=== PATIENT | female | born 1975 | race Caucasian/White ===

== ENCOUNTER 2018-06-08 13:42 | Emergency (ER) | payer SELFPAY ==
[2018-06-08 13:44] VITALS: BP 105/71; PULSE 94; RESP 16; TEMP 36.6; O2SAT 97; BMI 16.9
--- NOTE | 2018-06-08 14:08 | CT_ITS ---
STUDY: CT BRAIN WITHOUT CONTRAST REASON FOR EXAM: Female, 43 years old. Hallucinations RADIATION DOSAGE (If Supplied By Facility): CTDIvol = ( 44.99 ) mGy, DLP = ( 748.30 ) mGycm TECHNIQUE: Transaxial CT imaging of the brain was performed without administration of intravenous contrast material. Individualized dose optimization techniques were used for this CT. COMPARISON: None. FINDINGS: There is no acute bleed or infarct. There are normal white matter tracts. The ventricles are normal in configuration. There is no hydrocephalus. The visualized paranasal sinuses are clear. There are postsurgical changes noted in the maxillary sinuses. The mastoid air cells are well aerated. There is no skull fracture. CT/Brain/Head without Contrast IMPRESSION: No acute intracranial abnormality. Electronically Signed: Gadiel Samuel, at 15:31 EDT Tel , Service support ,
[2018-06-08 14:30] LABS: Absolute Lymphocyte Count 1.89 X10^3/ul (0.83-4.51); Absolute Neutrophil Count 3.3 X10^3/uL (2.0-7.7); Basophil# 0.01 X10^3/uL; Basophil% 0.2 % (0-1); Eosinophils% 1.7 % (0-5); Hematocrit 45.1 % (37-47); Lymphocyte # 1.89 X10^3/ul (4.0); Lymphocyte % 32.8 % (19-41); Mean Corp Hgb Conc 33.3 g/gl (32-36); Mean Corpuscular Hgb 29.8 pg (27.0-32.0); Mean Corpuscular Volume 89.7 fL (81-99); Mean Platelet Vol. 9.1 fl (6.2-12.0); Monocyte% 8.7 % (0-10); Neutrophil # 3.25 X10^3/uL (2.7-7.7); Neutrophil % 56.4 % (47-70); Platelet Count 283 K/mm3 (150-450); RBC Distribution Width CV 12.9 % (11.6-14.6); Red Blood Count 5.03 M/mm3 (4.2-5.4); White Blood Count 5.8 K/mm3 (4.4-11.0)
[2018-06-08 14:32] LABS: POSITIVE COUNT NO; POSITIVE DIFFERENTIAL NO; POSITIVE MORPHOLOGY NO
--- NOTE | 2018-06-08 14:41 | ED.RN ---
PT NOTES THAT SHE IS NOT ABLE TO VOID AT THIS TIME
[2018-06-08 14:50] LABS: Alcohol, Blood (Medical)-Serum < 3.0 mg/dL
[2018-06-08 14:53] LABS: Anion Gap 7 (5-15); BUN 9 mg/dL (7-18); BUN/Creat Ratio 12.8 RATIO (10-20); Chloride 107 mmol/L (98-107); EST Glomerular Filtration Rate 97 mL/min (>60); Est Glom Filt Rate - Afr Amer 117 mL/min (>60); Estimated Creatinine Clearance 76.19 ml/min; Glucose 96 mg/dL (74-106); Potassium 3.7 mmol/L (3.5-5.1); Sodium Level 140 mmol/L (136-145); Thyroid Stim Hormone (TSH) 0.38 uIU/mL (0.358-3.74)
[2018-06-08 14:59] LABS: Pregnancy, Serum, hCG Quali. NEGATIVE Negative (0-9 Nonpreg)
[2018-06-08 16:07] LABS: Amphetamine Urine VISTA POSITIVE (<1000 ng/mL); Barbiturate Urine VISTA NEGATIVE (< 200 ng/mL); Benzodiazepine Urine VISTA NEGATIVE (< 200 ng/mL); Cocaine Urine VISTA NEGATIVE (< 300 ng/mL); Ecstacy Urine VISTA NEGATIVE (< 500 ng/mL); Methadone Urine VISTA NEGATIVE (< 300 ng/mL); PCP Urine VISTA NEGATIVE (< 25 ng/mL); THC Urine VISTA NEGATIVE (< 50 ng/mL); Vista UDS pH Range 6
[2018-06-08 16:13] VITALS: PULSE 75; RESP 14; O2SAT 98
--- NOTE | 2018-06-08 16:24 | NURSING ---
CALLED [facility]SEL[facility]
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
--- NOTE | 2018-06-08 16:49 | NURSING ---
TAVARES MARSHALL, CALLED BACK. SHE IS AT [facility].
--- NOTE | 2018-06-08 17:08 | ED.VISSUMM ---
- ER Visit Summary Date of Service: 06/08/18 Chief Complaint: Presents to the emergency room because of auditory and visual hallucinations. History of Present Illness: The patient is a 43 F with no psychiatric disorder who was brought to the ER by her mother because of auditory and visual hallucination. She has had problems with sleep, appetite with weight loss. She was in a long-term relationship of 18-19 years with boyfriend who she is no longer with. She has had other losses in the last 1-2 months. The weight loss is unintentional. She does have history of chronic back pain. She does admit to depression anxiety. There is a strong family history of bipolar affective disorder. She denies any suicidal homicidal thoughts. She has taken akqy-jtl-kkrhckp medication recently. She does admit to smoking. She presently lives with her dog. Mother states she is not eating well. And even when she visits she does not eat well. She is concerned because her daughter is been losing weight and does not look happy. Physical Examination: Patient is thin but not cachectic. Vital signs are normal. She has slow psychomotor skills with poverty of speech. She denies suicidal homicidal ideation. Head is atraumatic normocephalic. Pupils are equal round reactive. Extraocular muscles are intact. TMs are pearly white with landmarks noted. Nares patent with no drainage. Posterior pharynx without erythema or exudate. Uvula is midline. There is no dysphonia or dysphasia. Trachea is midline. There is no stridor with auscultation of the neck. Heart is regular without murmur, gallop or rub. S1 and S2 are normal. Lungs are clear to auscultation with good movement of air bilaterally. Abdomen is soft nontender. Bowel sounds are present normal. Patient is alert and oriented ?3. Motor is 5 over 5. Sensory is intact. DTRs are symmetric with no clonus or Babinski sign. Cranial 2 through 12 are intact. Cerebellar testing is normal. Test Results: CBC, BMP, alcohol, hCG and tox screen are all negative. TSH is within normal limits. CT of the head interpreted radiologist reveals no process. Emergency Department Course and Treatment: Because there is no prior history of psychiatric disorder and she is having both auditory and visual hallucinations a CT of the head was obtained to rule out any intracranial process. CBC, BMP, amphetamine, alcohol and TSH were obtained. The tox was positive for amphetamine which may secondary to the ndoj-owx-jmxoufu medication she has taken recently. Serum test was negative. Treatment Plan: Radha who is the licensed tax consultant on for the counselor was paged. She is presently at another facility. Patient has significant depression she needs urgent intervention. Since she is not doing well at home with poor social interactions recommend either acute outpatient visit with antidepressant versus hospitalization. Disposition: Pending evaluation by Radha licensed tax consultant from the counseling center Impression: 1. Depression, major 2. Unintentional weight loss secondary #1 3. Auditory and visual hallucination This note was generated with [employer] Digital Keysation software. It may contain incorrect words, spelling, and punctuation that were not noted in review of the chart prior to signing ED Disposition - Plan for ED Patient: Chief Complaint: Mental Health Referrals: Kaiser La MD [Primary Care Provider] -
--- NOTE | 2018-06-08 17:13 | ED.DCSUM_ITS ---
- ER Visit Summary Date of Service: 06/08/18 Chief Complaint: Presents to the emergency room because of auditory and visual hallucinations. History of Present Illness: The patient is a 43 F with no psychiatric disorder who was brought to the ER by her mother because of auditory and visual hallucination. She has had problems with sleep, appetite with weight loss. She was in a long-term relationship of 18-19 years with boyfriend who she is no longer with. She has had other losses in the last 1-2 months. The weight loss is unintentional. She does have history of chronic back pain. She does admit to depression anxiety. There is a strong family history of bipolar affective disorder. She denies any suicidal homicidal thoughts. She has taken over-the- counter medication recently. She does admit to smoking. She presently lives with her dog. Mother states she is not eating well. And even when she visits she does not eat well. She is concerned because her daughter is been losing weight and does not look happy. Physical Examination: Patient is thin but not cachectic. Vital signs are normal. She has slow psychomotor skills with poverty of speech. She denies suicidal homicidal ideation. Head is atraumatic normocephalic. Pupils are equal round reactive. Extraocular muscles are intact. TMs are pearly white with landmarks noted. Nares patent with no drainage. Posterior pharynx without erythema or exudate. Uvula is midline. There is no dysphonia or dysphasia. Trachea is midline. There is no stridor with auscultation of the neck. Heart is regular without murmur, gallop or rub. S1 and S2 are normal. Lungs are clear to auscultation with good movement of air bilaterally. Abdomen is soft nontender. Bowel sounds are present normal. Patient is alert and oriented ?3. Motor is 5 over 5. Sensory is intact. DTRs are symmetric with no clonus or Babinski sign. Cranial 2 through 12 are intact. Cerebellar testing is normal. Test Results: CBC, BMP, alcohol, hCG and tox screen are all negative. TSH is within normal limits. CT of the head interpreted radiologist reveals no process. Emergency Department Course and Treatment: Because there is no prior history of psychiatric disorder and she is having both auditory and visual hallucinations a CT of the head was obtained to rule out any intracranial process. CBC, BMP, amphetamine, alcohol and TSH were obtained. The tox was positive for amphetamine which may secondary to the licn-rnf-winqrmz medication she has taken recently. Serum test was negative. Treatment Plan: Radha who is the generator worker on for the counselor was paged. She is presently at another facility. Patient has significant depression she needs urgent intervention. Since she is not doing well at home with poor social interactions recommend either acute outpatient visit with antidepressant versus hospitalization. Disposition: Pending evaluation by Radha generator worker from the counseling center Impression: 1. Depression, major 2. Unintentional weight loss secondary #1 3. Auditory and visual hallucination This note was generated with ProfitB[employer]ation software. It may contain incorrect words, spelling, and punctuation that were not noted in review of the chart prior to signing ED Disposition - Plan for ED Patient: Chief Complaint: Mental Health Referrals: [facility] La MD [Primary Care Provider] -
--- NOTE | 2018-06-08 18:18 | NURSING ---
ROLANDO, CRISIS, HERE FOR PATIENT
[2018-06-08 18:30] VITALS: PULSE 82; O2SAT 98
--- NOTE | 2018-06-08 19:32 | ED.VISSUMM ---
- ER Visit Summary Date of Service: 06/08/18 Chief Complaint: [Addendum to initial dictation by Dr. Levi Zacarias] History of Present Illness: The patient is a 43 F [was turned over to me awaiting evaluation by crisis. Patient with some depression and visual and auditory hallucinations. After evaluation by crisis it was felt she could be discharged home with safety plan and close follow-up tomorrow with the counseling center. Patient has her parents here with her and they will stay with her tonight. Patient is not currently suicidal.] Physical Examination: [] Test Results: [] Emergency Department Course and Treatment: [] Treatment Plan: [] Disposition: [Discharged home in stable condition] Impression: [Depression Visual and auditory hallucinations] This note was generated with Spotivate dictation software. It may contain incorrect words, spelling, and punctuation that were not noted in review of the chart prior to signing ED Disposition - Plan for ED Patient: Chief Complaint: Mental Health Instructions: ED Depression Referrals: Kaiser La MD [Primary Care Provider] - Additional Instructions: see counseling center tomorrow
[2018-06-08 19:38] VITALS: RESP 18
== END 2018-06-08 19:38 | disposition home or self-care (01) ==
PROVIDERS: Emergency Provider Emergency Medicine; Family Provider Family Medicine; PCP Family Medicine
DX: F32.9 Major depressive disorder, single episode, unspecified (principal); R44.0 Auditory hallucinations; R44.1 Visual hallucinations; R63.4 Abnormal weight loss; Z68.1 Body mass index [BMI] 19.9 or less, adult; Z81.8 Family history of other mental and behavioral disorders
CPT/HCPCS: 36415; 70450; 80048; 80307; 80320; 84443; 84703; 85025; 99283; G0480

== ENCOUNTER 2018-07-31 14:14 | Emergency (ER) | payer SELFPAY ==
[2018-07-31 14:15] VITALS: BP 157/74; PULSE 100; RESP 18; TEMP 36.8; O2SAT 97; BMI 17.2
--- NOTE | 2018-07-31 15:01 | ED.RN ---
CALLED PT TO COME BACK TO ED ROOM AT 1442, PT AND SO NOT IN DEPT.
== END 2018-07-31 15:21 | disposition left against medical advice (07) ==
LOC: ED 15:13
PROVIDERS: Emergency Provider Emergency Medicine; Family Provider Family Medicine; PCP Family Medicine
DX: R69 Illness, unspecified (principal); Z53.21 Procedure and treatment not carried out due to patient leaving prior to being seen by health care provider

== ENCOUNTER 2023-08-26 07:39 | Emergency (ER) | payer MEDICARE, MEDICAID, SELFPAY ==
[2023-08-26 07:40] VITALS: BP 122/102; PULSE 117; RESP 16; TEMP 36.1; O2SAT 98; BMI 26.1
--- NOTE | 2023-08-26 07:49 | RAD_ITS ---
STUDY: X-RAY - LEFT ANKLE REASON FOR EXAM: Female, 48 years old. Injury. TECHNIQUE: 3 views of the left ankle. COMPARISON: None. FINDINGS: Normal visualized distal tibia and fibula. Normal medial and lateral malleoli. Normal tibiotalar articulation and ankle mortise. Intact visualized talus and calcaneus. There is a posterior calcaneal tuberosity spur at the distal insertion of the Achilles tendon. The visualized subtalar, talonavicular, calcaneocuboid and tarsal articulations are normal. There is no demonstrated fracture. The soft tissue structures are unremarkable. RAD/Ankle min 3 Views IMPRESSION: Posterior calcaneal tuberosity spur at the distal insertion of the Achilles tendon. No demonstrated fracture. Electronically Signed: Panda Valles MD at 8:32 EDT ,
--- NOTE | 2023-08-26 07:49 | RAD_ITS ---
STUDY: X-RAY - LEFT FOOT CLINICAL: Female, 48 years old. Injury. TECHNIQUE: 3 views of the left foot. COMPARISON: None. FINDINGS: Intact talus, calcaneus, and tarsal bones. There is a posterior calcaneal tuberosity spur at the distal insertion of the Achilles tendon. Normal visualized subtalar, talonavicular, calcaneocuboid, tarsal and tarsometatarsal articulations. Normal metatarsi. Normal metatarsophalangeal joint of the great toe. Normal tibial and fibular sesamoid bones. Normal interphalangeal joint of the great toe. Normal phalanges of the great toe. Normal second through fifth metatarsophalangeal joints. Normal interphalangeal joints and phalanges of the lesser toes. There is mild soft tissue swelling along the dorsum of the forefoot. There is no demonstrated fracture. RAD/Foot min 3 Views IMPRESSION: Posterior calcaneal tuberosity spur at the distal insertion of the Achilles tendon. Mild soft tissue swelling along the dorsum of the forefoot. No demonstrated fracture. Electronically Signed: Panda Valles MD at 8:34 EDT ,
--- NOTE | 2023-08-26 07:53 | EDS_ITS ---
HPI History of Present Illness Chief Complaint: Lower Extremity Injury Informant: patient Onset/Context/Timing Onset: Yesterday Context: Sudden Onset Timing: Continuous Quality of Pain: Aching Location: L foot/ankle Current Severity: Moderate Maximum Severity: Moderate Worsened by: walking Relieved by: rest Associated Symptoms Associated Symptoms: Negative for Parasthesia, Weakness or Loss of Funtion Narrative Narrative: Patient states she accidentally stepped in a hole in the yard, twisting her left ankle, she felt a pop at 1 point. She has pain in the lateral aspect of the left ankle and foot. Has been able to walk now and at the time of the incident but with significant discomfort. No other injuries. PFSH PFSH Medical History no medical history Home Medications cyclobenzaprine 10 mg tablet 10 mg PO BID 06/08/18 [History Last Taken Unknown] gabapentin 100 mg capsule (Neurontin) 100 mg PO DAILY 06/08/18 [History Last Taken Unknown] levonorgestrel 0.15 mg-ethinyl estradiol 0.03 mg tablet (Lillow (28)) 1 tab PO DAILY 06/08/18 [History Last Taken 06/08/18] oxycodone-acetaminophen 5 mg-325 mg tablet 1 tab PO Q4H PRN PRN Pain 06/08/18 [History Last Taken Unknown] Allergy/AdvReac Type Severity Reaction Status Date / Time No Known Allergies Allergy Verified 08/26/23 07:40 Social History Smoking Status: Never smoker ROS ROS ED Constitutional Constitutional ED: Denies chills or fever(s) Musculoskeletal Musculoskeletal: Reports extremity pain; Denies neck pain Integumentary Denies Abrasions, rash or wounds Neurologic Neurologic: Denies paresthesias or weakness EXAM Physical Exam Const Vital Signs: 08/26/23 07:40 Temperature 96.9 F L Temperature Source Temporal Pulse Rate 117 H Respiratory Rate 16 Blood Pressure 122/102 H Blood Pressure Mean 108 Pulse Ox 98 Oxygen Delivery Method Room Air Positive well nourished and well developed General Appearance ED: well developed and NAD Neck full ROM and supple Back/Spine normal ROM and normal to inspection Extremity Extremity Narrative: Swelling, ecchymosis, tenderness left lateral malleolus. Nontender medial malleolus and fibular head. She is tender at the base of the fifth metatarsal as well as all of the areas between this and the lateral malleolus. Joint feels stable with applying medial stress on the ankle. Mild tenderness at the distal metatarsals 4 and 5 without any signs of injury or swelling there. Toes nontender. The great toe has a bandage on it patient states she just had her nail removed surgically and it is not part of this injury. Neuro oriented x3, no focal motor deficits and no sensory deficits noted Sensorium / Orientation: alert Psych mental status grossly normal and thought process normal Skin no wounds Rashes: no rashes MDM MDM MDM Narrative Medical decision making narrative: Given the base of the fifth metatarsal and foot bones that are tender, three- view x-rays series of both the left ankle and foot were obtained, both negative on my interpretation, and radiology in agreement. Patient reassured given ibuprofen and an Aircast with appropriate sprain instructions and reasons to return. Radiography Diagnostic Testing: Clinical Impression(s) from Imaging Studies Ankle X-Ray 08/26/23 07:49 IMPRESSION: Posterior calcaneal tuberosity spur at the distal insertion of the Achilles tendon. No demonstrated fracture. Electronically Signed: Panda Valles MD at 8:32 EDT Reading Location ID and State: [id number] / [email or web address] , Service support , Foot X-Ray 08/26/23 07:49 IMPRESSION: Posterior calcaneal tuberosity spur at the distal insertion of the Achilles tendon. Mild soft tissue swelling along the dorsum of the forefoot. No demonstrated fracture. Electronically Signed: Panda Valles MD at 8:34 EDT , Discharge Plan Triage Chief Complaint: Lower Extremity Injury ED Provider: Patricio Hernadez Dx/Rx/DC Orders Clinical Impression: Sprain of ankle, left, Sprain of foot, left Instructions: ED Ankle Sprain (Adult) Prescriptions: No Action cyclobenzaprine 10 MG tablet 10 mg PO BID oxycodone-acetaminophen 1 TABLET tablet 1 tab PO Q4H PRN PRN (Reason: Pain) gabapentin [Neurontin] 100 MG capsule 100 mg PO DAILY levonorgestrel-ethinyl estrad [Angelo (28)] 1 EACH tablet 1 tab PO DAILY Patient Comments: Primary Care Provider: Care Physician,No Primary Referrals: Doctor,Your [Non-Staff] - 10-14 Days if not better Disposition Disposition: Home, Self Care
[2023-08-26] MEDS: Ibuprofen 600 MG Tablet PO (09:25)
== END 2023-08-26 09:27 | disposition home or self-care (01) ==
PROVIDERS: Emergency Provider Emergency Medicine; Visit Provider Emergency Medicine
DX: S93.402A Sprain of unspecified ligament of left ankle, initial encounter (principal); X58.XXXA Exposure to other specified factors, initial encounter
CPT/HCPCS: 73610; 73630; 99283

== ENCOUNTER 2025-10-31 16:11 | Emergency (ER) | payer MEDICARE, MEDICAID, SELFPAY ==
[2025-10-31 16:11] VITALS: BP 127/86; PULSE 100; RESP 16; TEMP 36.6; O2SAT 98; BMI 28.8
--- NOTE | 2025-10-31 16:25 | EX.ED.GENINJ ---
HPI History of Present Illness Chief Complaint: Fall Informant: patient Narrative Narrative: 50-year-old female presenting for the evaluation of injury sustained from a fall. Patient states that due to the snow and ice last night she slipped and fell while outside injuring her left elbow left knee ankle and foot. Patient chronically has sensory loss below the knee on the left but she is experiencing pain. Patient denies any loss of consciousness. She states she continues to have pain today and notes some swelling of the lateral ankle. She notes continued pain with extension at the left elbow. PFSH PFSH Home Medications ?Medication ?Instructions ?Recorded ?Last Taken ?Type cyclobenzaprine 10 mg tablet 10 mg PO BID 06/08/18 Unknown History gabapentin 100 mg capsule 100 mg PO DAILY 06/08/18 Unknown History (Neurontin) levonorgestrel 0.15 mg-ethinyl 1 tab PO DAILY 06/08/18 06/08/18 History estradiol 0.03 mg tablet (Lillow (28)) oxycodone-acetaminophen 5 mg-325 1 tab PO Q4H PRN PRN Pain 06/08/18 Unknown History mg tablet atorvastatin 40 mg tablet 40 mg PO DAILY 10/31/25 Unknown History buspirone 10 mg tablet 10 mg PO BID PRN PRN anxiety 10/31/25 Unknown History clobetasol 0.05 % topical ointment 1 applic topical BID 10/31/25 Unknown History estradiol 10 mcg vaginal tablet 1 vaginal 10/31/25 Unknown History (Yuvafem) norethindrone 1.5 mg-ethinyl 1 tab PO DAILY 10/31/25 Unknown History estradiol 30 mcg(21)/iron 75 mg(7) tablet (Aditi Fe 1.5/30 (28)) oxycodone-acetaminophen 5 mg-325 1 tab PO Q6H PRN pain 3 days #12 10/31/25 Unknown Rx mg tablet (Percocet) tabs vortioxetine 20 mg tablet 20 mg PO DAILY 10/31/25 Unknown History (Trintellix) Allergy/AdvReac Type Severity Reaction Status Date / Time No Known Allergies Allergy Verified 10/31/25 16:13 Social History Smoking Status: Never smoker ROS ROS ED Constitutional Constitutional ED: Denies chills or weight loss Eyes Eyes: Denies change in vision or diplopia ENT ENT ED: Denies ear pain, rhinorrhea or sore throat Cardiovascular Cardiovascular: Denies chest pain, orthopnea, palpitations or racing heartbeat Respiratory/Chest Respiratory/Chest: Denies cough, dyspnea or orthopnea Gastrointestinal Gastrointestinal: Denies abdominal pain, diarrhea, nausea or vomiting Genitourinary Genitourinary ED: Denies dysuria, hematuria or urinary frequency Musculoskeletal Musculoskeletal: Reports other Details: Left elbow knee foot and ankle pain ; Denies arthralgias, back pain, myalgias or neck pain Integumentary Denies abscess or rash Neurologic Neurologic: Denies headache(s) or weakness Psychiatric Psychiatric: Denies anxiety, depression, suicidal ideation or suicidal thoughts Endocrine Endocrinology: Denies polydipsia, polyphagia or polyuria Allergic/Immunologic Allergic/Immunologic ED: Denies mouth swelling, tongue swelling or urticaria EXAM Physical Exam Const Vital Signs: 10/31/25 16:11 10/31/25 16:23 Temperature 98 F Temperature Source Temporal Pulse Rate 100 Respiratory Rate 16 Respiratory Effort Normal Non-Labored Respiratory Depth Normal Respiratory Pattern Normal Blood Pressure 127/86 H Blood Pressure Mean 99 Pulse Ox 98 Oxygen Delivery Method Room Air Positive well nourished and well developed General Appearance ED: well developed HEENT Reports normocephalic, head/scalp atraumatic and moist mucous membranes Eyes PERRL and EOMs intact bilaterally Neck no lymphadenopathy, supple and no JVD Resp normal respiratory effort and clear to auscultation bilaterally Cardio regular rate, regular rhythm and no murmurs GI normal to inspection, nondistended, normoactive bowel sounds and non-tender Palpation: soft Back/Spine no CVA tenderness and normal ROM Extremity Extremity Narrative: Left elbow demonstrates pain with palpation of the olecranon and with full extension. No significant swelling or ecchymosis is seen. Left wrist and hand appear uninjured. Left knee demonstrates prior surgical incisions which are well-healed. There appears to be an area of ecchymosis in the infrapatellar region. No significant effusion. Ligaments are stable. Left ankle demonstrates lateral malleolus swelling and tenderness. The swelling extends down onto the dorsal lateral aspect of the left foot. No significant deformities are seen. General Extremety ED: Negative for edema General Extremity: Negative for edema Neuro oriented x3 and CN's II-XII intact bilaterally Sensorium / Orientation: alert Motor Exam: strength 5/5 throughout Psych mental status grossly normal Mood & Affect: Negative for depressed or tearful Skin no rashes or lesions noted and no wounds MDM MDM MDM Narrative Medical decision making narrative: Differential diagnosis includes left foot ankle knee and elbow fracture contusion sprain strain hematoma neurovascular injury Based on the physical exam patient appears to be neurovascularly intact/at her baseline. My independent interpretation of the plain film the left elbow is avulsion fracture of possibly the radial head versus coronoid process. There is hemarthrosis. My independent interpretation of the plain films of the left knee is no acute fracture My independent interpretation of the plain films of the left ankle is no acute fracture My independent interpretation of the plain films of the left foot is no acute fracture. Patient was placed in a well-padded posterior Ortho-Glass splint made by this physician. Neurovascularly intact pre and post application. She will utilize sling as needed. Percocet for pain. The left ankle sprain the patient states has a air splint at home. We will place an Avila wrap here. She has no local orthopedic surgeon and I can refer her to Dr. Hayes who is on-call. History & Record Review Discussion w/independent historian: Patient Radiography Diagnostic Testing: Clinical Impression(s) from Imaging Studies Ankle X-Ray 10/31/25 16:33 IMPRESSION: Mild lateral soft tissue swelling left ankle. Degenerative changes of the foot and ankle. Negative for fracture of the left foot or ankle. Reading Location: [facility] Elbow X-Ray 10/31/25 16:33 IMPRESSION: Hemarthrosis with bony fragments adjacent to the elbow, likely avulsion fractures. Uncertain etiology. CT of the left elbow to better evaluate likely helpful. Reading Location: [id number] Foot X-Ray 10/31/25 16:33 IMPRESSION: Mild lateral soft tissue swelling left ankle. Degenerative changes of the foot and ankle. Negative for fracture of the left foot or ankle. Reading Location: [id number] Knee X-Ray 10/31/25 16:33 IMPRESSION: 1. Postoperative changes about the knee. No malalignment. 2. Osteoarthritis. Sequelae of old ligamentous injury of the medial collateral ligament structures. Soft tissue swelling medially. Reading Location: [id number] Discharge Plan Triage Chief Complaint: Fall ED Provider: Jose Brennan Dx/Rx/DC Orders Clinical Impression: Fall, Closed fracture of left elbow, Contusion of knee, left, Left ankle sprain Instructions: ED Elbow Fracture, ED Ankle Sprain (Adult) Prescriptions: New oxycodone-acetaminophen [Percocet] 5-325 mg tablet 1 tab PO Q6H PRN (Reason: pain) 3 Days Qty: 12 0RF No Action cyclobenzaprine 10 MG tablet 10 mg PO BID oxycodone-acetaminophen 1 TABLET tablet 1 tab PO Q4H PRN PRN (Reason: Pain) gabapentin [Neurontin] 100 MG capsule 100 mg PO DAILY levonorgestrel-ethinyl estrad [Lillow (28)] 1 EACH tablet 1 tab PO DAILY Patient Comments: atorvastatin 40 mg tablet 40 mg PO DAILY norethindrone-e.estradiol-iron [Aditi Fe 1.5/30 (28)] 1.5 mg-30 mcg (21)/75 mg (7) tablet 1 tab PO DAILY buspirone 10 mg tablet 10 mg PO BID PRN PRN (Reason: anxiety) clobetasol 0.05 % ointment 1 applic topical BID estradiol [Yuvafem] 10 mcg tablet 1 vaginal Trintellix 20 mg tablet 20 mg PO DAILY Primary Care Provider: JEREMY CM Referrals: Gadiel Rodriguez MD [Med Staff - Active Staff, Orthopedics] - As soon as possible Referral Note: for local orthopedics Care Physician,No Primary [Non-Staff, Medical] Print Language: Croatian Disposition Disposition: Home, Self Care
--- NOTE | 2025-10-31 16:33 | RAD_ITS ---
PROCEDURE: ELBOW MIN 3 VIEWS 10/31/2025 REASON FOR EXAM: INJURY TECHNIQUE: Procedure Code: CYRUS Modality: DX Procedure: ELBOW MIN 3 VIEWS Laterality: Left COMPARISON: None. FINDINGS: Bones: Presumed avulsion fractures noted adjacent to the radial head best seen on the lateral view. Distal humerus negative. Proximal radius and ulna negative. Joints: Anterior and posterior fat pad displacement. Soft tissues: Soft tissues soft tissues negative. Other: Remainder of the exam negative. RAD/Elbow min 3 Views IMPRESSION: Hemarthrosis with bony fragments adjacent to the elbow, likely avulsion fractur es. Uncertain etiology. CT of the left elbow to better evaluate likely helpful. Reading Location: [id number]
--- NOTE | 2025-10-31 16:33 | RAD_ITS ---
PROCEDURE: ANKLE MIN 3 VIEWS; FOOT MIN 3 VIEWS 10/31/2025 REASON FOR EXAM: INJURY Ankle pain. TECHNIQUE: Procedure Code: RADANK; RADFO Modality: DX Procedure: ANKLE MIN 3 VIEWS; FOOT MIN 3 VIEWS Laterality: Left COMPARISON: None FINDINGS: Three views of the left ankle. Bones: Distal tibia and fibula negative. Imaged hindfoot and metatarsals negative. Joints: Normal for age. Soft tissues: Mild lateral soft tissue swelling. Other: Remainder of the exam negative. Three views of the left foot. Bones: Osteopenia. Degenerative changes of the 1st interphalangeal joint. Distal tibia and fibula otherwise negative. Tarsals metatarsals and phalanges otherwise negative. Joints: Negative for joint space narrowing. Soft tissues: . Negative for radiopaque foreign body. Negative for soft tissue swelling. Other: Adjacent soft tissues otherwise negative. Remainder of exam negative. RAD/Foot min 3 Views IMPRESSION: Mild lateral soft tissue swelling left ankle. Degenerative changes of the foot and ankle. Negative for fracture of the left foot or ankle. Reading Location: [id number]
--- NOTE | 2025-10-31 16:33 | RAD_ITS ---
PROCEDURE: KNEE 4 OR MORE VIEWS 10/31/2025 REASON FOR EXAM: INJURY TECHNIQUE: Procedure Code: RADKN Modality: DX Procedure: KNEE 4 OR MORE VIEWS Laterality: Left COMPARISON: None FINDINGS: Bones: Buttress plates and screws are shown involving the distal femur. Additional screws are seen in the medial and lateral malleoli. 2 screws are seen at the tibial tuberosity. Joints: Tricompartment osteoarthritic change. Spurring of the tibial spines. Some calcification also is shown at the medial epicondyle and proximal tibia that is the sequelae of prior ligamentous injury of the medial collateral ligaments. Effusion: No effusion. 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 Postoperative changes about the knee. No malalignment. 2. Osteoarthritis. Sequelae of old ligamentous injury of the medial collatera l ligament structures. Soft tissue swelling medially. Reading Location: [id number]
--- NOTE | 2025-10-31 16:33 | RAD_ITS ---
PROCEDURE: ANKLE MIN 3 VIEWS; FOOT MIN 3 VIEWS 10/31/2025 REASON FOR EXAM: INJURY Ankle pain. TECHNIQUE: Procedure Code: RADANK; RADFO Modality: DX Procedure: ANKLE MIN 3 VIEWS; FOOT MIN 3 VIEWS Laterality: Left COMPARISON: None FINDINGS: Three views of the left ankle. Bones: Distal tibia and fibula negative. Imaged hindfoot and metatarsals negative. Joints: Normal for age. Soft tissues: Mild lateral soft tissue swelling. Other: Remainder of the exam negative. Three views of the left foot. Bones: Osteopenia. Degenerative changes of the 1st interphalangeal joint. Distal tibia and fibula otherwise negative. Tarsals metatarsals and phalanges otherwise negative. Joints: Negative for joint space narrowing. Soft tissues: . Negative for radiopaque foreign body. Negative for soft tissue swelling. Other: Adjacent soft tissues otherwise negative. Remainder of exam negative. RAD/Ankle min 3 Views IMPRESSION: Mild lateral soft tissue swelling left ankle. Degenerative changes of the foot and ankle. Negative for fracture of the left foot or ankle. Reading Location: [id number]
--- OUTSIDE RECORDS SUMMARY | 2025-10-31 16:48 | XMS RPT_ITS | CCD ---
Author Organization [facility] Care Team Providers Care Passenger Representative Name Role Phone ZacariasZacariaso Unavailable HANS Herrera Unavailable PROVIDER, UNKNOWN Referring Unavailable No, PCP Primary Care Unavailable Wilmer Solo Attending Unavailable KENY BANG, HANS Bergeron Primary Care Physician YUSUF BANG, ZEESHAN Caal Attending Unavail able KENY BANG, HANS Bergeron Primary Care Unavailable FAIZAN BANG, JOSE F Attending Unavailable KENY BANG, HANS Bergeron Primary Care Unavailable KENY BANG, HANS Bergeron Primary Care Unavailable JEREMY ASHER Attending Yoko espinoza Medications Current Medications Medication Drug Class(es) Dates Sig (Normalized) Sig (Original) 3.5 ML paliperidone palmitate 312 MG/ML Prefilled Syringe [Invega] (3 sources) Start: 05-16-2023 Invega Hafyera 1092 mg/3.5 mL intramuscular suspension, extended release Dose : 1,092 mg =, Intramuscular, q6mo, shake well before using, # 3.5 mL, 0 Refill(s) Start Date: 05/16/23 Status: Ordered Medication Dispense Status: Completed Quantity: 3.5 Unit: mL Total Allowed Fills: 1 Fills Dispensed: 0 Start: 05-16-2023 Invega Hafyera 1092 mg/3.5 mL intramuscular suspension, extended release Dose : 1,092 mg =, Intramuscular, q6mo, shake well before using, # 3.5 mL, 0 Refill(s) Start Date: 05/16/23 Status: Ordered clobetasol propionate 0.0005 mg/mg topical ointment (3 sources) Corticosteroid Start: 04-21-2025 clobetasol 0.0 5% topical ointment See Instructions, APPLY TO AFFECTED AREA ONCE PER WEEK, MAY INCREASE TO TWICE A DAY FOR 7 DAYS FOR ANY LICHEN RECURRENCES, # 60 gram(s), 3 Refill(s), Pharmacy: [facility] STORE [id number], 165.2, cm, 12/28/24 14:30:00 EST, Height, 74.1, kg, 12/28/24 14:30:00 EST, Dosing Weight Start Date: 04/21/25 Status: Ordered Medication Dispense Status: Completed Quantity: 60.0 Unit: g Total Allowed Fills: 1 Fills Dispensed: 0 Start: 10-08-2023 End: 01-28-2024 clobetasol 0.05% topical oin tment Apply 1 robert, Topical, BID, # 60 gram(s), 3 Refill(s), Pharmacy: [facility] #[id number], Ointment, 165.2, cm, 10/08/23 14:57:00 EST, Height, 70.5, kg, 10/08/23 14:57:00 EST, Dosing Weight Start Date: 10/08/23 Stop Date: 01/28/24 Status: Ordered cyclobenzaprine hydrochloride 10 mg oral tablet (2 sources) Muscle Relaxant Start: 06-30-2025 End: 07-30-2025 cyclobenzaprine 10 mg oral tablet Dose : 10 mg = 1 tab(s), Oral, BID, PRN for spasm, # 60 tab(s), 0 Refill(s), Pharmacy: [facility]/pharmacy #[id number], Chronic low back pain, 163, cm, 06/23/25 15:26:00 EDT, Height, kg, 06/23/25 15:26:00 EDT, Dosing Weight Start Date: 06/30/25 Stop Date: 07/30/25 Status: Ordered Medication Dispense Status: Completed Quantity: 60.0 Unit: tab(s) Total Allowed Fills: 1 Fills Dispensed: 0 Indications: Low back pain, unspecified; Start: 04-27-2022 cyclobenzaprin e 10 mg oral tablet Dose : 10 mg = 1 tab(s), Oral, BID, # 90 tab(s), 2 Refill(s), Pharmacy: [facility] 167, cm, 04/27/22 14:29:00 EDT, Height, kg, 04/27/22 14:29:00 EDT, Dosing Weight Start Date: 04/27/22 Status: Ordered estradiol 0.01 mg vaginal insert (3 sources) Estrogen Start: 12-28-2024 Vagifem 10 mcg vaginal insert Dose : 10 mcg = 1 insert, Vaginal, 2x/Wk, # 8 insert, 11 Refill(s), Pharmacy: [facility]/pharmacy #[id number], 165.2, cm, 12/28/24 14:30:00 EST, Height, kg, 12/28/24 14:30:00 EST, Dosing Weight Start Date: 12/28/24 Status: Ordered Medication Dispense Status: Completed Quantity: 8.0 Unit: insert Total Allowed Fills: 12 Fills Dispensed: 0 Start: 05-16-2023 End: 07-18-2023 Estrace Vaginal 0.1 mg/g vag inal cream 1 gram(s), Vaginal, qDay, # 42.5 gram(s), 2 Refill(s), Pharmacy: [facility] #[id number], 165, cm, 05/16/23 10:57:00 EDT, Height Start Date: 05/16/23 Stop Date: 07/18/23 Status: Ordered ethinyl estradiol 0.03 mg / ferrous fumarate 75 mg / norethindrone 1.5 mg oral tablet (6 sources) Estrogen Start: 03-25-2025 take 1 tablet by mouth once daily oral tablet See Instructions, TAKE 1 TABLET BY MOUTH EVERY DAY, # 84 tab(s), 2 Refill(s), Pharmacy: [facility]/pharmacy #[id number], 165.2, cm, 12/28/24 14:30:00 EST, Height, kg, 12/28/24 14:30:00 EST, Dosing Weight Start Date: 03/25/25 Status: Ordered Medication Dispense Status: Completed Quantity: 84.0 Unit: tab(s) Total Allowed Fills: 3 Fills Dispensed: 0 Start: 09-30-2023 take 1 tablet by vangie th once daily oral tablet Dose = 1 tab(s), Oral, qDay, # 90 tab(s), 3 Refill(s), Pharmacy: [facility] #[id number], 165.2, cm, 10/08/23 14:57:00 EST, Height, kg, 10/08/23 14:57:00 EST, Dosing Weight Start Date: 10/08/23 Status: Ordered Start: 09-17-2022 take 1 tablet by once daily oral tablet Dose = 1 tab(s), Oral, qDay, # 28 tab(s), 11 Refill(s), Pharmacy: [facility] #[id number], 165, cm, 09/17/22 14:58:00 EDT, Height Start Date: 09/17/22 Status: Ordered fluticasone propionate 0.05 mg/actuat metered dose nasal spray (2 sources) Corticosteroid Start: 07-31-2019 take 2 spray(s) nasal route once daily fluticasone proprionate NASAL 50 mcg/ spray place 2 sprays into each nostril once daily Start Date: 07/31/19 Status: Ordered gabapentin 100 mg oral capsule (2 sources) Anti-epileptic Agent Start: 06-23-2025 End: 09-21-2025 gabapentin 100 mg oral capsule Dose : 100 mg = 1 cap(s), Oral, TID, # 90 cap(s), 2 Refill(s), Pharmacy: [facility]/pharmacy #[id number], Chronic low back pain Neuropathy, 163, cm, 06/23/25 15:26:00 EDT, Height, 73.9, kg, 06/23/25 15:26:00 EDT, Dosing Weight Start Date: 06/23/25 Stop Date: 09/21/25 Status: Ordered Medication Dispense Status: Completed Quantity: 90.0 Unit: cap(s) Total Allowed Fills: 3 Fills Dispensed: 0 Indications: Low back pain, unspecified; Polyneuropathy, unspecified; Start: 04-27-2022 End: 10-19-2023 gabapentin 100 mg oral capsu le Dose : 100 mg = 1 cap(s), Oral, TID, # 270 cap(s), 5 Refill(s), Pharmacy: [facility] Neuropathy, 167, cm, 04/27/22 14:29:00 EDT, Height, 75.2, kg, 04/27/22 14:29:00 EDT, Dosing Weight Start Date: 04/27/22 Stop Date: 10/19/23 Status: Ordered ibuprofen 800 mg oral tablet (1 source) Nonsteroidal Anti-inflammatory Drug Start: 07-08-2024 End: 07-13-2024 ibuprofen 800 mg oral tablet Dose : 800 mg = 1 tab(s), Oral, TID, X 5 day(s), # 15 tab(s), 0 Refill(s), 07/13/24 6:49:00 PM EDT Start Date: 07/08/24 Stop Date: 07/13/24 Status: Ordered loratadine 10 mg oral capsule (4 sources) Start: 08-03-2020 loratadine 10 mg oral capsule Dose : 10 mg = 1 cap(s), Oral, qDayAC, # 90 cap(s), 3 Refill(s), Pharmacy: [address], 165, cm, 07/22/20 14:49:00 EDT, Height, kg, 07/22/20 14:49:00 EDT, Dosing Weight Start Date: 08/03/20 Status: Ordered Medication Dispense Status: Completed Quantity: 90.0 Unit: cap(s) Total Allowed Fills: 4 Fills Dispensed: 0 1.315 ml paliperidone palmitate 312 mg/ml prefilled syringe (1 source) Atypical Antipsychotic Start: 07-31-2019 inject 1 dose by intramuscular injection every three months Invega Trinza 410 mg/1.315 mL intramuscular suspension, extended release Dose : 410 mg =, Intramuscular, c0sfjyn, # 1.32 mL, 0 Refill(s) Start Date: 07/31/19 Status: Ordered vortioxetine 20 mg oral tablet (4 sources) Start: 07-31-2021 Trintellix 20 mg oral tablet Dose : 20 mg = 1 tab(s), Oral, qDay, # 30 tab(s), 0 Refill(s) Start Date: 07/31/21 Status: Ordered Medication Dispense Status: Completed Quantity: 30.0 Unit: tab(s) Total Allowed Fills: 1 Fills Dispensed: 0 {21 (ethinyl estradiol 0.03 MG / norethindrone acetate 1.5 MG Oral Tablet) / 7 (ferrous fumarate 75 MG Oral Tablet) } Pack [Aditi Fe 1.5/30 28 Day] (1 source) Start: 12-28-2024 take 1 tablet by mouth once daily Aditi Fe 1.5/30 oral tablet Dose = 1 tab(s), Oral, qDay, # 90 tab(s), 3 Refill(s), Pharmacy: [facility]/pharmacy #[id number], 165.2, cm, 12/28/24 14:30:00 EST, Height, kg, 12/28/24 14:30:00 EST, Dosing Weight Start Date: 12/28/24 Status: Ordered Medication Dispense Status: Completed Quantity: 90.0 Unit: tab(s) Total Allowed Fills: 4 Fills Dispensed: 0 Completed/Discontinued Medications Medication Drug Class(es) Dates Sig (Normalized) Sig (Original) acetaminophen 325 mg / oxyCODONE hydrochloride 5 mg oral tablet (1 source) Opioid Agonist Start: 04-27-2022 End: 05-27-2022 take 1 tablet by mouth twice daily acetaminophen-oxy CODONE 325 mg-5 mg oral tablet Dose = 1 tab(s), Oral, BID, fill on 06/27/2022, # 60 tab(s), 0 Refill(s), Pharmacy: [facility] [address] Chronic low back pain, 167, cm, 04/27/22 14:29:00 EDT, Height, 75.2, kg, 04/27/22 14:29:00 EDT, Dosing Weight Start Date: 04/27/22 Stop Date: 05/27/22 Status: Ordered {21 (Desogestrel 0.15 MG / Ethinyl Estradiol 0.03 MG Oral Tablet) / 7 (Inert Ingredients 1 MG Oral Tablet) } Pack [Enskyce 28 Day] (1 source) Progestin, Estrogen Start: 05-08-2022 take 1 tablet by mouth once daily Enskyce 0.15 mg-0.03 mg oral tablet Dose = 1 tab(s), Oral, qDay, # 28 tab(s), 11 Refill(s), Pharmacy: [email or web address] [address] 167, cm, 04/27/22 14:29:00 EDT, Height, kg, 04/27/22 14:29:00 EDT, Dosing Weight Start Date: 05/08/22 Status: Ordered Problems Active Problems Problem Classification Problem Date Documented Date Episodic/Chronic Anxiety disorders (1 source) Anxiety 05-19-2025 Chronic Disorders of lipid metabolism (1 source) Hyperlipidemia, unspecified; Translations: [Hyperlipidemia, unspecified] Onset: 07-20-2025 Chronic Inflammatory diseases of female pelvic organs (5 sources) Vaginitis; Translations: [Acute vulvitis] Onset: 10-08-2023 05-16-2023 Episodic Mood disorders (1 source) Depressive disorder 05-19-2025 Chronic Other female genital disorders (3 sources) Pain in female genitalia on intercourse 05-16-2023 Chronic Other lower respiratory disease (4 sources) Wheezing 07-31-2019 Episodic Other nervous system disorders (1 source) Neuropathy 05-19-2025 Chronic Other nervous system disorders (4 sources) Foot-drop gait 04-21-2021 Episodic Other nutritional; endocrine; and metabolic disorders (1 source) Overweight in adulthood with body mass index of 25 or more but less than 30 06-23-2025 Episodic Other screening for suspected conditions (not mental disorders or infectious disease) (1 source) Encounter for screening for lipoid disorders; Translations: [Encounter for screening for lipoid disorders] Onset: 07-20-2025 Episodic Schizophrenia and other psychotic disorders (4 sources) Schizophrenia 07-31-2019 Chronic Spondylosis; intervertebral disc disorders; other back problems (4 sources) Chronic low back pain 07-31-2019 Episodic Substance-related disorders (2 sources) Other stimulant abuse, uncomplicated; Translations: [Other stimulant abuse, uncomplicated] Onset: 06-29-2018 Chronic Superficial injury; contusion (1 source) Contusion of left lesser toe; Translations: [Contusion of left lesser toe(s) without damage to nail, initial encounter] Onset: 07-08-2024 Episodic Unclassified (4 sources) Hip joint structure (body structure) 12-07-2014 Unclassified (4 sources) Entire jaw region (body structure) 12-07-2014 Unclassified (4 sources) Entire knee region (body structure) 12-07-2014 Unclassified (4 sources) Nasal (qualifier value) 12-07-2014 Unclassified (4 sources) Thoracic (qualifier value) 12-07-2014 Unclassified (4 sources) Bone structure of tibia (body structure) 12-07-2014 Unclassified (5 sources) Patient encounter status 06-23-2025 Past or Other Problems Problem Classification Problem Date Documented Da te Episodic/Chronic Residual codes; unclassified (2 sources) Auditory hallucinations; Translations: [Auditory hallucinations] Onset: 06-29-2018 Episodic Results Test Name Value Interpretation Reference Range Facility .Auto Diffon 07-20-2025 Basophil, Absolute 0.0 10 3/mcL Normal 0.0-0.3 [facility] Comment on above: Performed By: #### G FR, LIPID, ANEU, ADIFF, CMP, CBC #### [address] [address] Basophils/100 WBC (Bld) 0.4 % Normal 0.0-2.5 [facility] Comment on above: Performed By: #### G FR, LIPID, ANEU, ADIFF, CMP, CBC #### [address] [address] Eosinophil, Absolute 0.7 10 3/mcL Normal 0.0-0.7 [facility] Comment on above: Performed By: #### G FR, LIPID, ANEU, ADIFF, CMP, CBC #### [address] [address] Eosinophils/100 WBC (Bld) 9.3 % High 0.0-6.0 [facility] Comment on above: Performed By: #### G FR, LIPID, ANEU, ADIFF, CMP, CBC #### [address] [address] Lymphocyte, Absolute 2.8 10 3/mcL Normal 0.9-4.3 [facility] Comment on above: Performed By: #### G FR, LIPID, ANEU, ADIFF, CMP, CBC #### [address] [address] Lymphocytes/100 WBC (Bld) 37.6 % Normal 20.0-40.0 [facility] Comment on above: Performed By: #### G FR, LIPID, ANEU, ADIFF, CMP, CBC #### [address] [address] Monocyte, Absolute 0.7 10 3/mcL Normal 0.1-1.4 [facility] Comment on above: Performed By: #### G FR, LIPID, ANEU, ADIFF, CMP, CBC #### [address] [address] Monocytes/100 WBC (Bld) 9.1 % Normal 2.0-13.0 [facility] Comment on above: Performed By: #### G FR, LIPID, ANEU, ADIFF, CMP, CBC #### [address] [address] Neutrophils/100 WBC (Bld) 43.6 % Low 50.0-75.0 [facility] Comment on above: Performed By: #### G FR, LIPID, ANEU, ADIFF, CMP, CBC #### [address] [address] .GFRon 07-20-2025 Estimated Glomerular Filtration Rate 73 ml/min/1.73sqm Normal [facility] Comment on above: Result Comment: Stages of Chronic Kidney Disease (CKD) Stage Description eGFR(ml/min/1.73 sq.m.) CKD 1 Normal kidney function or >=90 normal kindney function with possible kidney damage (ex. Proteinuria) CKD 2 Kidney damage with mild loss 60-89 of kidney function CKD 3a Mild to moderate loss of kidney 45-59 function CKD 3b Moderate to severe loss of 30-44 of kindey function CKD 4 Severe loss of kidney function 15-29 CKD 5 Kidney failure <15 Note: (go live 2024) the eGFR calculation was updated to the 2020 CKD-EPI creatinine equation without a race factor to calculate the eGFR results. Performed By: #### G FR, LIPID, ANEU, ADIFF, CMP, CBC #### [address] [address] .NEUABSon 07-20-2025 Neutrophil, Absolute 3.2 10 3/mcL Normal 2.3-8.1 [facility] Comment on above: Performed By: #### G FR, LIPID, ANEU, ADIFF, CMP, CBC #### [address] [address] CBCon 07-20-2025 Erythrocyte distribution width (RBC) [Ratio] 14.3 % Normal 11.5-15.5 [facility] Comment on above: Performed By: #### G FR, LIPID, ANEU, ADIFF, CMP, CBC #### [place] [address] Hematocrit (Bld) [Volume fraction] 40.7 % Normal 34.0-46.0 [facility] Comment on above: Performed By: #### G FR, LIPID, ANEU, ADIFF, CMP, CBC #### [place] [address] Hgb 13.6 G/dL Normal 12.0-16.0 [facility] Comment on above: Performed By: #### G FR, LIPID, ANEU, ADIFF, CMP, CBC #### [place] [address] MCH (RBC) [Entitic mass] 29.2 pg Normal 27.0-33.0 [facility] Comment on above: Performed By: #### G FR, LIPID, ANEU, ADIFF, CMP, CBC #### [place] [address] MCHC 33.5 G/dL Normal 32.0-36.0 [facility] Comment on above: Performed By: #### G FR, LIPID, ANEU, ADIFF, CMP, CBC #### [place] [address] MCV (RBC) [Entitic vol] 87.0 fL Normal 80.0-99.0 [facility] Comment on above: Performed By: #### G FR, LIPID, ANEU, ADIFF, CMP, CBC #### [place] [address] Platelet 280 10 3/mcL Normal 150-450 [facility] Comment on above: Performed By: #### G FR, LIPID, ANEU, ADIFF, CMP, CBC #### [place] [address] Platelet mean volume (Bld) [Entitic vol] 7.4 fL Normal 6.6-10.5 [facility] Comment on above: Performed By: #### G FR, LIPID, ANEU, ADIFF, CMP, CBC #### [address] [address] RBC 4.68 10 6/mcL Normal 4.10-5.30 [facility] Comment on above: Performed By: #### G FR, LIPID, ANEU, ADIFF, CMP, CBC #### [address] [address] WBC 7.4 10 3/mcL Normal 4.5-10.8 [facility] Comment on above: Performed By: #### G FR, LIPID, ANEU, ADIFF, CMP, CBC #### [address] [address] CMPon 07-20-2025 Albumin Level 3.2 G/dL Low 3.5-5.0 [facility] Comment on above: Performed By: #### G FR, LIPID, ANEU, ADIFF, CMP, CBC #### [place] [id number] Albumin/Globulin [Mass ratio] 0.8 {ratio} Low 1.1-2.5 [facility] Comment on above: Performed By: #### G FR, LIPID, ANEU, ADIFF, CMP, CBC #### [address] [address] ALP [Catalytic activity/Vol] 81 U/L Normal 40-135 [facility] Comment on above: Performed By: #### G FR, LIPID, ANEU, ADIFF, CMP, CBC #### [address] [address] ALT [Catalytic activity/Vol] 18 U/L Normal 14-59 [facility] Comment on above: Performed By: #### G FR, LIPID, ANEU, ADIFF, CMP, CBC #### [address] [address] AST [Catalytic activity/Vol] 14 U/L Normal 10-40 [facility] Comment on above: Performed By: #### G FR, LIPID, ANEU, ADIFF, CMP, CBC #### [address] [address] Bili Total 0.3 mg/dL Normal 0.2-1.0 [facility] Comment on above: Result Comment: Use of this assay is not recommended for patients undergoing treatment with eltrombopag due to the potential for falsely elevated results. Performed By: #### G FR, LIPID, ANEU, ADIFF, CMP, CBC #### [place] [address] BUN/Creatinine Ratio 11 ratio Normal 7-27 [facility] Comment on above: Performed By: #### G FR, LIPID, ANEU, ADIFF, CMP, CBC #### [place] [address] Calcium [Mass/Vol] 9.3 mg/dL Normal 8.4-10.2 [facility] Comment on above: Performed By: #### G FR, LIPID, ANEU, ADIFF, CMP, CBC #### [place] [address] Chloride [Moles/Vol] 101 mmol/L Normal 98-107 [facility] Comment on above: Performed By: #### G FR, LIPID, ANEU, ADIFF, CMP, CBC #### [place] [address] CO2 [Moles/Vol] 30 mmol/L High 22-29 [facility] Comment on above: Performed By: #### G FR, LIPID, ANEU, ADIFF, CMP, CBC #### [place] [address] Creatinine [Mass/Vol] 0.96 mg/dL High 0.51-0.95 [facility] Comment on above: Performed By: #### G FR, LIPID, ANEU, ADIFF, CMP, CBC #### [place] [address] Electrolyte Balance 6.0 mEq/L Normal 4.0-15.0 [facility] Comment on above: Performed By: #### G FR, LIPID, ANEU, ADIFF, CMP, CBC #### [place] [address] Globulin 4.2 G/dL Normal 2.7-4.4 [facility] Comment on above: Performed By: #### G FR, LIPID, ANEU, ADIFF, CMP, CBC #### [place] [address] [place], [place] [address] Glucose [Mass/Vol] 90 mg/dL Normal 70-105 [facility] Comment on above: Performed By: #### G FR, LIPID, ANEU, ADIFF, CMP, CBC #### [address] [address] Potassium [Moles/Vol] 4.1 mmol/L Normal 3.5-5.1 [facility] Comment on above: Performed By: #### G FR, LIPID, ANEU, ADIFF, CMP, CBC #### [address] [address] Sodium [Moles/Vol] 137 mmol/L Normal 136-145 [facility] Comment on above: Performed By: #### G FR, LIPID, ANEU, ADIFF, CMP, CBC #### [address] [address] Total Protein 7.4 G/dL Normal 6.4-8.2 [facility] Comment on above: Performed By: #### G FR, LIPID, ANEU, ADIFF, CMP, CBC #### [address] [address] Urea nitrogen [Mass/Vol] 11 mg/dL Normal 7-18 [facility] Comment on above: Performed By: #### G FR, LIPID, ANEU, ADIFF, CMP, CBC #### [address] [address] LABORATORYOrdered By: SYSTEM SYSTEM on 07-20-2025 Albumin BCP dye [Mass/Vol] 3.2 G/dL Low 3.5 - 5.0 G/dL AO ADM SS Albumin/Globulin [Mass ratio] 0.8 {ratio} Low 1.1 - 2.5 ratio AO ADM SS ALP [Catalytic activity/Vol] 81 U/L Normal 40 - 135 U/L AO ADM SS ALT With P-5'-P [Catalytic activity/Vol] 18 U/L Normal 14 - 59 U/L AO ADM SS AST With P-5'-P [Catalytic activity/Vol] 14 U/L Normal 10 - 40 U/L AO ADM SS Basophils (Bld) [#/Vol] 0.0 103/mcL Normal 0.0 - 0.3 10^3/mcL AO Workflow SS Basophils/100 WBC (Bld) 0.4 % Normal 0.0 - 2.5 % AO Workflow SS Bilirubin [Mass/Vol] 0.3 mg/dL Normal 0.2 - 1 .0 mg/dL AO ADM SS Comment on above: Interpretive Data: U se of this assay is not recommended for patients undergoing treatment with eltrombopag due to the potential for falsely elevated results. Calcium [Mass/Vol] 9.3 mg/dL Normal 8.4 - 10. 2 mg/dL AO ADM SS Chloride [Moles/Vol] 101 mmol/L Normal 98 - 10 7 mmol/L AO ADM SS CO2 [Moles/Vol] 30 mmol/L High 22 - 29 mmol/L AO ADM SS Creatinine [Mass/Vol] 0.96 mg/dL High 0.51 - 0.95 mg/dL AO ADM SS Electrolyte Balance 6.0 mEq/L Normal 4.0 - 15 .0 mEq/L AO ADM SS Eosinophil, Absolute 0.7 103/mcL Normal 0.0 - 0 .7 10^3/mcL AO Workflow SS Eosinophils/100 WBC (Bld) 9.3 % High 0.0 - 6.0 % AO Workflow SS Erythrocyte distribution width (RBC) [Ratio] 14.3 % Normal 11.5 - 15.5 % AO Workflow SS Estimated Glomerular Filtration Rate 73 ml/min/1.73sqm Invalid Interpretation Code AO Chemistry S Comment on above: Interpretive Data: Stages of Chronic Kidney Disease (CKD) Stage Description eGFR(ml/min/1.73 sq.m.) CKD 1 Normal kidney function or >=90 normal kindney function with possible kidney damage (ex. Proteinuria) CKD 2 Kidney damage with mild loss 60-89 of kidney function CKD 3a Mild to moderate loss of kidney 45-59 function CKD 3b Moderate to severe loss of 30-44 of kindey function CKD 4 Severe loss of kidney function 15-29 CKD 5 Kidney failure <15 Note: (go live 2024) the eGFR calculation was updated to the 2020 CKD-EPI creatinine equation without a race factor to calculate the eGFR results. Globulin 4.2 G/dL Normal 2.7 - 4.4 G/dL AO ADM SS Glucose [Mass/Vol] 90 mg/dL Normal 70 - 105 mg/dL AO ADM SS Hematocrit (Bld) [Volume fraction] 40.7 % Normal 34.0 - 46.0 % AO Workflow SS Hemoglobin (Bld) [Mass/Vol] 13.6 G/dL Normal 12.0 - 16.0 G/dL AO Workflow SS Lymphocytes (Bld) [#/Vol] 2.8 103/mcL Normal 0.9 - 4.3 10^3/mcL AO Workflow SS Lymphocytes/100 WBC (Bld) 37.6 % Normal 20.0 - 40.0 % AO Workflow SS MCH (RBC) [Entitic mass] 29.2 pg Normal 27.0 - 33.0 pg AO Workflow SS MCHC 33.5 G/dL Normal 32.0 - 36.0 G/dL AO Workflow SS MCV (RBC) [Entitic vol] 87.0 fL Normal 80.0 - 99.0 fL AO Workflow SS Monocytes (Bld) [#/Vol] 0.7 103/mcL Normal 0.1 - 1.4 10^3/mcL AO Workflow SS Monocytes/100 WBC (Bld) 9.1 % Normal 2.0 - 13.0 % AO Workflow SS Neutrophils (Bld) [#/Vol] 3.2 103/mcL Normal 2.3 - 8.1 10^3/mcL AO Workflow SS Neutrophils/100 WBC (Bld) 43.6 % Low 50.0 - 75.0 % AO Workflow SS Platelet mean volume (Bld) [Entitic vol] 7.4 fL Normal 6.6 - 10.5 fL AO Workflow SS Platelets (Bld) [#/Vol] 280 103/mcL Normal 150 - 450 10^3/mcL AO Workflow SS Potassium [Moles/Vol] 4.1 mmol/L Normal 3.5 - 5.1 mmol/L AO ADM SS Protein [Mass/Vol] 7.4 G/dL Normal 6.4 - 8.2 G/dL AO ADM SS RBC (Bld) [#/Vol] 4.68 106/mcL Normal 4.10 - 5.3 0 10^6/mcL AO Workflow SS Sodium [Moles/Vol] 137 mmol/L Normal 136 - 145 mmol/L AO ADM SS Urea nitrogen [Mass/Vol] 11 mg/dL Normal 7 - 18 mg/dL AO ADM SS Urea nitrogen/Creatinine [Mass ratio] 11 ratio Normal 7 - 27 ratio AO ADM SS WBC (Bld) [#/Vol] 7.4 103/mcL Normal 4.5 - 10.8 10^3/mcL AO Workflow SS LABORATORYOrdered By: Ana Ansari on 07-20-2025 Cholesterol [Mass/Vol] 327 mg/dL High 0 - 200 mg/dL AO ADM SS Comment on above: Interpretive Data: C holesterol Reference Interval: Less than 200 Desirable 200-239 Borderline high risk 240 and above High risk Cholesterol in HDL [Mass/Vol] 51 mg/dL Normal 40 - 60 mg/dL AO ADM SS Cholesterol in LDL [Mass/Vol] 247 mg/dL High 0 - 130 mg/dL AO ADM SS Triglyceride [Mass/Vol] 144 mg/dL Normal 0 - 150 mg/dL AO ADM SS Comment on above: Interpretive Data: T riglyceride Reference Interval: Less than 150 Normal 150-199 Borderline high risk 200-499 High risk 500 or higher Very high risk LIPIDon 07-20-2025 Cholesterol [Mass/Vol] 327 mg/dL High 0-200 [facility] Comment on above: Result Comment: Chol esterol Reference Interval: Less than 200 Desirable 200-239 Borderline high risk 240 and above High risk Performed By: #### G FR, LIPID, ANEU, ADIFF, CMP, CBC #### [id number] [place], [place] [address] Cholesterol in HDL [Mass/Vol] 51 mg/dL Normal 40-60 [facility] Comment on above: Performed By: #### G FR, LIPID, ANEU, ADIFF, CMP, CBC #### [id number] [place], [place] [address] Cholesterol in LDL [Mass/Vol] 247 mg/dL High 0-130 [facility] Comment on above: Performed By: #### G FR, LIPID, ANEU, ADIFF, CMP, CBC #### [id number] [place], [place] [address] Triglyceride [Mass/Vol] 144 mg/dL Normal 0-150 [facility] Comment on above: Result Comment: Trig lyceride Reference Interval: Less than 150 Normal 150-199 Borderline high risk 200-499 High risk 500 or higher Very high risk Performed By: #### G FR, LIPID, ANEU, ADIFF, CMP, CBC #### [address] [place], [place] [address] XR FOOT MINIMUM 3 VIEWS LEFT on 07-08-2024 XR FOOT MINIMUM 3 VIEWS LEFT ORIGINAL EXAMINATION: THREE XRAY VIEWS OF THE LEFT FOOT COMPARISON: Left foot radiograph 10/09/2019 HISTORY: ORDERING SYSTEM PROVIDED HISTORY: Reason for Exam: pain, great toe injury FINDINGS: No acute fracture or dislocation. Bony alignment is within normal limits. Stable appearance of 1.1 cm around lucency in the 1st proximal phalanx, which is benign appearing. Calcific density lateral to the 5th metatarsal head. Small lucency in the anterior calcaneus is unchanged from prior and may represent a benign-appearing lesion such as a lipoma. Moderate scattered degenerative changes. Small calcaneal Achilles enthesophyte. No significant joint effusion. Mild soft tissue swelling over the 1st digit. IMPRESSION: No acute fracture or dislocation. Mild soft tissue swelling over the 1st digit. Calcific density lateral to the 5th metatarsal head may represent sequela of prior insult or may be external in nature. Correlate with physical exam. Additional chronic findings as above. I have personally reviewed the images and agree with the resident's findings and interpretation. Interpreted by: Oni Arroyo Preliminary Report By: Philip Isaac Electronically signed By Oni Arroyo Dictated Date: 07/08/2024 6:28:06 PM Prelim Date: 07/08/2024 6:33:02 PM Sign Date: 07/08/2024 8:49:00 PM Ordering Provider: TOMI RIZZO [facility] ([place]) Final Surgical Pathology Rep terrell 10-14-2023 Final Surgical Pathology Report . Pathology Reports Accession: Collected Date/Time: Received Date/Time: Pathologist: [id number] 10/08/2023 15:47 EST 10/09/2023 14:02 EST JOSE MCKEON MD Final Surgical Pathology Report CORRECTED REPORT: [facility] DIAGNOSIS: A. 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 RIGHT PERINEUM: - ACUTE AND CHRONIC INFLAMMATION WITH SQUAMOUS HYPERPLASIA AND PARAKERATOSIS. NEGATIVE FOR DYSPLASIA. PAS STAIN IS POSITIVE FOR RARE FUNGAL HYPHAL ELEMENTS CLINICAL INFORMATION: erythema and maceration x 3 months Procedure: vulvar biopsy Preoperative diagnosis: vulvitis Postoperative diagnosis: vulvitis SPECIMEN: A RIGHT LABIA B RIGHT PERINEUM GROSS DESCRIPTION: All parts labelled with patient name and [id number] A. Received in formalin labeled right labia is 1 thorpe-pink tissue fragment measuring 0.6 x 0.2 cm. TS-1 B. Received in formalin labeled right peroneum is 1 thorpe tissue fragment measuring 0.5 x 0.3 cm. TS-1 Alejandra Soni, Grossing Disintegrator Feeder/ Dr. Jose Mckeon, Pathologist Dictated by Alejandra Soni MICROSCOPIC DESCRIPTION: The microscopic examination is performed, except in the case of Gross Only. Electronically Signed by Pathology Report verified by [facility] JOSE MCKEON Sign out Date: 10/14/2023 18:25 Performing Lab: [facility], [address] [place] [address] Pathology Dept Disclaimer If ancillary studies were utilized, the following Laboratory Developed Test (LDT) disclaimer will apply: Under CLIA requirements, [facility] Pathology Laboratory is qualified to perform high complexity testing. For all ancillary stains, positive and negative controls stain appropriately. Performance characteristics of immunohistochemical and chromogenic in-situ hybridization tests have been determined by [facility] Pathology Laboratory. These tests are used for clinical purposes, They should not be regarded as investigational or for research. Normal [facility] ([place]) Comp Metabolic Panelon 06-29 ALT enzyme act/vol 24 U/L Normal 13-69 [facility] Comment on above: Performed By: #### H EMOG, CMP3, ETOH4 #### [facility] [employer] [facility] [address] [place] [address] Calcium mass conc 9.5 mg/dL Normal 8.4-10.4 [facility] Comment on above: Performed By: #### H EMOG, CMP3, ETOH4 #### [facility] [address] [place] [address] Glucose mass conc 98 mg/dL Normal 70-100 [facility] Comment on above: Performed By: #### H EMOG, CMP3, ETOH4 #### [facility] [address] [place], [place] Urea nitrogen mass conc 14 mg/dL Normal 7-20 [facility] Comment on above: Performed By: #### H EMOG, CMP3, ETOH4 #### [facility] [address] [place], [place] ALP enzyme act/vol 56 U/L Normal 38-126 [facility] Comment on above: Performed By: #### H EMOG, CMP3, ETOH4 #### [facility] [address] [place], [place] Anion gap molar conc 8 Normal [facility] Comment on above: Performed By: #### H EMOG, CMP3, ETOH4 #### [address] [place], [place] AST enzyme act/vol 22 U/L Normal 15-46 [facility] Comment on above: Performed By: #### H EMOG, CMP3, ETOH4 #### [facility] [address] [place], [place] Bilirubin mass conc 0.5 mg/dL Normal 0.2-1.3 [facility] Comment on above: Performed By: #### H EMOG, CMP3, ETOH4 #### [facility] [address] [place], [place] CO2 molar conc 26 mmol/L Normal 22-30 [facility] Comment on above: Performed By: #### H EMOG, CMP3, ETOH4 #### [facility] [address] [place], [place] Creatinine mass conc 0.53 mg/dL Normal 0.52-1.25 [facility] Comment on above: Performed By: #### H EMOG, CMP3, ETOH4 #### [facility] [address] [place], [place] GFR/1.73 sq M predicted among blacks MDRD vol rate/area (S/P/Bld) mL/min/{1.73_m2} Normal >60 [facility] Comment on above: Performed By: #### H EMOG, CMP3, ETOH4 #### [address] [place], [place] GFR/1.73 sq M predicted among non-blacks MDRD vol rate/area (S/P/Bld) mL/min/{1.73_m2} Normal >60 [facility] Comment on above: Result Comment: Sour ce- MDRD equation with creatinine calibration to IDMS(NKDEP) eGFR not recommended for drug dose adjustment Performed By: #### H EMOG, CMP3, ETOH4 #### [address] [address] [place], [place] Protein mass conc 7.8 g/dL Normal 6.3-8.2 [facility] Comment on above: Performed By: #### H EMOG, CMP3, ETOH4 #### [address] [place], [place] Potassium molar conc 3.6 mmol/L Normal 3.5-5.1 [facility] Comment on above: Performed By: #### H EMOG, CMP3, ETOH4 #### [address] [address] [place], [place] Sodium molar conc 138 mmol/L Normal 137-145 [facility] Comment on above: Performed By: #### H EMOG, CMP3, ETOH4 #### [address] [place], [place] Albumin mass conc 4.9 g/dL Normal 3.5-5.0 [facility] Comment on above: Performed By: #### H EMOG, CMP3, ETOH4 #### [address] Chloride molar conc 103 mmol/L Normal 98-107 [facility] Comment on above: Performed By: #### H EMOG, CMP3, ETOH4 #### [address] [address] [place], [place] Drugs of Abuseon 06-29-2018 Amphetamines, Ur Positive Normal [facility] Comment on above: Performed By: #### H CGUR, THC4, DRGA4 #### [facility] [address] [facility], [place] Opiates, Ur Negative Normal [facility] Comment on above: Performed By: #### H CGUR, THC4, DRGA4 #### [facility] [address] [facility], [place] Phencyclidine (PCP), Ur Negative Normal [facility] Comment on above: Result Comment: The expected value for all of the drugs listed above is Negative. The following drugs or drug groups have been screened for by Immunoassay at the following thresholds: Amphetamine class (1000 ng/mL), Barbiturates (200 ng/mL), Benzodiazepines (200 ng/mL), Cocaine (300 ng/mL), Methadone (300 ng/mL), Opiates (300 ng/mL), Oxycodone (100 ng/mL), and PCP (25 ng/mL). NOTE: These results are for medical treatment only. Analysis performed using non-forensic procedures. Performed By: #### H CGUR, THC4, DRGA4 #### [facility] [address] [facility], [place] Cocaine, Ur Negative Normal [facility] Comment on above: Performed By: #### H CGUR, THC4, DRGA4 #### [facility] [address] [facility], [place] Methadone, Ur Negative Normal [facility] Comment on above: Performed By: #### H CGUR, THC4, DRGA4 #### [facility] [address] [facility] [place] Barbiturates, Ur Negative Normal [facility] Comment on above: Performed By: #### H CGUR, THC4, DRGA4 #### [facility] [address] [facility], [place] Benzodiazepines, Ur Negative Normal [facility] Comment on above: Performed By: #### H CGUR, THC4, DRGA4 #### [facility] [address] [facility] [place] Oxycodone/Oxymorphin e,Ur Positive Normal [facility] Comment on above: Performed By: #### H CGUR, THC4, DRGA4 #### [facility] [address] [place], [place] Ethanol Serum/Plasmaon 06-29 Ethanol-Serum/Plasma < 0.010 Normal 0.000-0.010 [facility] Comment on above: Result Comment: NOTE : This result is for medical treatment only. Analysis performed using non-forensic procedures. Performed By: #### H EMOG, CMP3, ETOH4 #### [facility] [address] [place], [place] HCG,Urine Qualon 06-29-2018 HCG.beta subunit ( test) Ql (U) Negative Normal Negative [facility] Comment on above: Result Comment: Preg shayan is the most common reason for HCG in urine, although choriocarcinoma, hydatidiform mole, and certain nontropho- blastic malignancies also result in detectable urinary HCG levels. Sensitivity = 20mIU/mL. Performed By: #### H CGMIHAELA, THC4, DRGA4 #### [facility] [address] [place], [place] Hemogramon 06-29-2018 Erythrocyte distribution width Ratio (RBC) 13.3 % Normal 11.5-14.5 [facility] Comment on above: Performed By: #### H EMOG, CMP3, ETOH4 #### [facility] [address] [place], [place] Hematocrit Volume Fraction (Bld) 40.6 % Normal 35.0-47.0 [facility] Comment on above: Performed By: #### H EMOG, CMP3, ETOH4 #### [facility] [address] [place], [place] Hemoglobin mass conc (Bld) 13.7 g/dL Normal 11.7-16.0 [facility] Comment on above: Performed By: #### H EMOG, CMP3, ETOH4 #### [facility] [address] [place], [place] MCH Entitic mass (RBC) 30.4 pg Normal 26.0-34.0 [facility] Comment on above: Performed By: #### H EMOG, CMP3, ETOH4 #### [address] MCHC mass conc (RBC) 33.7 % Normal 32.0-36.0 [facility] Comment on above: Performed By: #### H EMOG, CMP3, ETOH4 #### [address] MCV Entitic volume (RBC) 90.2 fL Normal 79.0-98.0 [facility] Comment on above: Performed By: #### H EMOG, CMP3, ETOH4 #### [address] Platelet mean volume Entitic volume (Bld) 7.6 fL Normal 7.4-10.4 [facility] Comment on above: Performed By: #### H EMOG, CMP3, ETOH4 #### [address] Platelets #/vol (Bld) 296 10*3/uL Normal 140-440 [facility] Comment on above: Performed By: #### H EMOG, CMP3, ETOH4 #### [address] RBC #/vol (Bld) 4.50 10*6/uL Normal 3.80-5.20 [facility] Comment on above: Performed By: #### H EMOG, CMP3, ETOH4 #### [address] WBC #/vol (Bld) 8.5 10*3/uL Normal 3.6-10.7 [facility] Comment on above: Performed By: #### H EMOG, CMP3, ETOH4 #### [address] THC, Urineon 06-29-2018 THC, Ur Negative Normal [facility] Comment on above: Result Comment: Thre shold= 50 ng/mL Performed By: #### H CGUR, THC4, DRGA4 #### [address] [address] Alcohol, Blood (Medical)-Ser umon 06-08-2018 SERUM ETOH < 3.0 Normal [facility] Comment on above: Result Comment: The serum:whole blood ethanol ratio is approximately 1.14and varies slightly with hematocrit.Medical Alcohol reference interval and critical value innon-tolerant individuals; 50 - 100 Impairment 100 Intoxication 100 - 250 Severe Poisoning 250 - 400 Deep/possible fatal coma Performed By: #### L 501.9100 ####[facility] [address] [place], [address] Basic Metabolic Profile (BMP )on 06-08-2018 BUN (urea nitrogen) 12.8 RATIO Normal 10-20 [facility] Comment on above: Performed By: #### L 500.2500, L501.9520 ####[facility] [address] [place], [address] Calcium 9.0 mg/dL Normal 8.5-10.1 [facility] Comment on above: Performed By: #### L 500.2500, L501.9520 ####[facility] [address] [place], [address] Chloride 107 mmol/L Normal 98-107 [facility] Comment on above: Performed By: #### L 500.2500, L501.9520 ####[facility] [address] [place], [address] CO2 26.0 mmol/L Normal 21.0-32.0 [facility] Comment on above: Performed By: #### L 500.2500, L501.9520 ####[facility] [address] [place], [address] Creatinine 0.70 mg/dL Normal 0.55-1.02 [facility] Comment on above: Result Comment: The validity of the calculated GFR AND GFRAA in patients over70 years has not been determined. Clinical correlation isessential. Performed By: #### L 500.2500, L501.9520 ####[facility] [address] [place], [address] eGFR (non-black) 97 mL/min/{1.73_m2} Normal >60 [facility] Comment on above: Result Comment: Non- GFR Calc Performed By: #### L 500.2500, L501.9520 ####[facility] [address] [place], [address] EST GFR - AA 117 mL/min Normal >60 [facility] Comment on above: Result Comment: Afri can [place] GFR Calc Performed By: #### L 500.2500, L501.9520 ####[facility] [address] [place], [address] Estimated CRCL 76.19 ml/min Normal [facility] Comment on above: Performed By: #### L 500.2500, L501.9520 ####[facility] [address] [place], [address] GAP 7 Normal 5-15 [facility] Comment on above: Performed By: #### L 500.2500, L501.9520 ####[facility] [address] [place], [address] Glucose mass conc 96 mg/dL Normal 74-106 [facility] Comment on above: Result Comment: Yaniv stover note revised GLUCOSE reference range /02/2018. Performed By: #### L 500.2500, L501.9520 ####[facility] [address] [place], [address] Potassium molar conc 3.7 mmol/L Normal 3.5-5.1 [facility] Comment on above: Performed By: #### L 500.2500, L501.9520 ####[facility] [address] [place], [address] Sodium 140 mmol/L Normal 136-145 [facility] Comment on above: Performed By: #### L 500.2500, L501.9520 ####[facility] [address] [place], [address] Urea nitrogen 9 mg/dL Normal 7-18 [facility] Comment on above: Performed By: #### L 500.2500, L501.9520 ####[facility] [address] [place], [address] Brain/Head without Contrasto n 06-08-2018 Brain/Head without Contrast [facility] [address] [place] [address]Jebpq/Head without ContrastMR#: [id number] Acct: [id number]: UZMA URBINA Rep #: [id number]: 1975 F 43 From: Gadiel Samuel MDPCP: Hans La MD Status: REG ERStudy: Brain/Head without Contrast Date of Exam: 06/08/18Exam# [id number] Ordering Dr: Levi Zacarias MDSTUDY: CT BRAIN WITHOUT CONTRASTREASON FOR EXAM: Female, 43 years old. HallucinationsRADIATION DOSAGE (If Supplied By Facility): CTDIvol = ( 44.99 ) mGy, DLP =( 748.30 ) mGycmTECHNIQUE: Transaxial CT imaging of the brain was performed withoutadministration of intravenous contrast material.Individualized dose optimization techniques were used for this CT.COMPARISON: None. FINDINGS:The re is no acute bleed or infarct.There are normal white matter tracts.The ventricles are normal in configuration. There is no hydrocephalus.The visualized paranasal sinuses are clear.There are postsurgical changes noted in the maxillary sinuses.The mastoid air cells are well aerated.There is no skull fracture. CT/Brain/Head without ContrastIMPRESSION:No acute intracranial abnormality.Electronically Signed:Gadiel Samuel, at 15:31 EDTTel , Service support , [facility]: Hans La MD; Levi Zacarias MD Rotary Shear Operator:Signed Normal [facility] CBC W/Diff, Automatedon 07- Absolute Neut 3.3 X10 3/uL Normal 2.0-7.7 [facility] Comment on above: Performed By: #### L 100.0100 ####[facility] [address] [place], [address] Basophils/100 WBC Auto (Bld) 0.2 % Normal 0-1 [facility] Comment on above: Performed By: #### L 100.0100 ####[facility] [address] [place], [address] Eosinophils/100 leukocytes 1.7 % Normal 0-5 [facility] Comment on above: Performed By: #### L 100.0100 ####[facility] [address] [place], [address] Erythrocyte distribution width Auto Ratio (RBC) 12.9 % Normal 11.6-14.6 [facility] Comment on above: Performed By: #### L 100.0100 ####[facility] [address] [place], [address] Erythrocytes (RBC) 5.03 M/mm3 Normal 4.2-5.4 [facility] Comment on above: Performed By: #### L 100.0100 ####[facility] [address] [place], [address] Hematocrit (HCT) 45.1 % Normal 37-47 [facility] Comment on above: Performed By: #### L 100.0100 ####[facility] [address] [place], [address] Hemoglobin mass conc (Bld) 15.0 g/dL Normal 12.0-15.0 [facility] Comment on above: Performed By: #### L 100.0100 ####[facility] [address] [place], [address] IM GRAN % 0.200 % Normal 0.0-0.9 [facility] Comment on above: Result Comment: IG% - Immature Granulocytes (promyelocytes, myelocytes andmetamyelocytes) > 1% indicates that a LEFT SHIFT is Present. Performed By: #### L 100.0100 ####[facility] [address] [place], [address] Lymphocytes 1.89 X10 3/ul Normal 0.83-4.51 [facility] Comment on above: Performed By: #### L 100.0100 ####[facility] [address] [place], [address] Lymphocytes/100 leukocytes 32.8 % Normal 19-41 [facility] Comment on above: Performed By: #### L 100.0100 ####[facility] [address] [place], [address] MCH 29.8 pg Normal 27.0-32.0 [facility] Comment on above: Performed By: #### L 100.0100 ####[facility] [address] [place], [address] MCHC mass conc (RBC) 33.3 g/gl Normal 32-36 [facility] Comment on above: Performed By: #### L 100.0100 ####[facility] [address] [place], [address] MCV 89.7 fL Normal 81-99 [facility] Comment on above: Performed By: #### L 100.0100 ####[facility] [address] [place], [address] Monocytes/100 leukocytes 8.7 % Normal 0-10 [facility] Comment on above: Performed By: #### L 100.0100 ####[facility] [address] [place], [address] Neutrophils/100 WBC Auto (Bld) 56.4 % Normal 47-70 [facility] Comment on above: Performed By: #### L 100.0100 ####[facility] [address] [place], [address] Platelet mean volume (PMV) 9.1 fL Normal 6.2-12.0 [facility] Comment on above: Performed By: #### L 100.0100 ####[facility] [address] [place], [address] Platelets 283 10*3/uL Normal 150-450 [facility] Comment on above: Performed By: #### L 100.0100 ####[facility] [address] [place], [address] RDW SD 42.0 fl Normal 35.1-43.9 [facility] Comment on above: Performed By: #### L 100.0100 ####[facility] [address] [place], [address] WBC (Leukocytes) 5.8 10*3/uL Normal 4.4-11.0 [facility] Comment on above: Performed By: #### L 100.0100 ####[facility] [address] [place], [address] Discharge Instructionon 05-19 Discharge Instruction [facility] [address] [facility] [place], [place] [address]Comsiepqo Syepgilhbhr52/22/18 1932#: [id number] Acct: [id number]: UZMA URBINA Rep #: [id number]: 1975 43 From: Rc Álvarez DOPCP: Hans La MD Status: REG ERED Disposition- Plan for ED Patient:Chief Complaint: Mental HealthInstructions: ED DepressionReferrals:Hans Hinojosa MD [Primary Care Provider] -Additional Instructions:see counseling center tomorrowWhat to do if you have ProblemsFor any increased pain, shortness of breath, bleeding, nausea or vomiting, chest pain, or anyunexpected problems, contact your Primary Care Provider. Call [facility] ([phone])or report to the closest Emergency Room.Call 911 if necessary.06/08/181931 Date Rc Álvarez DOCosigner Signature (If Indicated): Date CC: Hans La MD [facility] Emergency Department Summary on 06-08-2018 Emergency Department Summary [facility] [address] [place], [place] [address]Uowknyypc Department Wpczxen96/22/181931MR#: [id number] Acct: [id number]: UZMA URBINA Raymond Rep #: [id number]: 1975 43 From: Rc Álvarez DOPCP: Hans La MD Status: REG ER- ER Visit SummaryDate of Service: 06/08/18Chief Complaint: [Addendum to initial dictation by Dr. Levi Zacarias]History of Present Illness: The patient is a 43 F [was turned over to me awaiting evaluation bycrisis. Patient with some depression and visual and auditory hallucinations. After evaluationby crisis it was felt she could be discharged home with safety plan and close follow-uptomorrow with the counseling center. Patient has her parents here with her and they will staywith her tonight. Patient is not currently suicidal.]Physical Examination: []Test Results: []Emergency Department Course and Treatment: []Treatment Plan: []Disposition: [Discharged home in stable condition]Impression: [DepressionVisual and auditory hallucinations]This note was generated with weezim.comation software. It may contain incorrect words,spelling, and punctuation that were not noted in review of the chart prior to signingED Disposition- Plan for ED Patient:Chief Complaint: Mental HealthInstructions: ED DepressionReferrals:Hans Hinojosa MD [Primary Care Provider] -Additional Instructions:see counseling center tomorrowWhat to do if you have ProblemsFor any increased pain, shortness of breath, bleeding, nausea or vomiting, chest pain, or anyunexpected problems, contact your Primary Care Provider. Call [facility] ([phone])or report to the closest Emergency Room.Call 911 if necessary.06/08/18 193 Date Remus Preeti DOCosigner Signature (If Indicated): Date CC: Hans La MD [facility] Emergency Department Summary [facility]Medical Records [address] [place], [place] [address]Ryiywyobe Department Dxkfkqf28/22/18 1708#: [id number] Acct: [id number]: URBINAUZMA Raymond Rep #: [id number]: 1975 43 From: Levi Zacarias MDPCP: Hans La MD Status: REG ER- ER Visit SummaryDate of Service: 06/08/18Chief Complaint: Presents to the emergency room because of auditory and visual hallucinations.History of Present Illness: The patient is a 43 F with no psychiatric disorder who was broughtto the ER by her mother because of auditory and visual hallucination. She has had problemswith sleep, appetite with weight loss. She was in a long-term relationship of 18-19 years withboyfriend who she is no longer with. She has had other losses in the last 1-2 months. Theweight loss is unintentional. She does have history of chronic back pain. She does admit todepression anxiety. There is a strong family history of bipolar affective disorder. Shedenies any suicidal homicidal thoughts. She has taken mgrd-ift-gxtjwxg medication recently.She does admit to smoking. She presently lives with her dog. Mother states she is not eatingwell. And even when she visits she does not eat well. She is concerned because her daughteris been losing weight and does not look happy.Physical Examination: Patient is thin but not cachectic. Vital signs are normal. She has slowpsychomotor skills with poverty of speech. She denies suicidal homicidal ideation. Head isatraumatic normocephalic. Pupils are equal round reactive. Extraocular muscles are intact.TMs are pearly white with landmarks noted. Nares patent with no drainage. Posterior pharynxwithout erythema or exudate. Uvula is midline. There is no dysphonia or dysphasia. Tracheais midline. There is no stridor with auscultation of the neck. Heart is regular withoutmurmur, gallop or rub. S1 and S2 are normal. Lungs are clear to auscultation with goodmovement of air bilaterally. Abdomen is soft nontender. Bowel sounds are present normal.Patient is alert and oriented 3. Motor is 5 over 5. Sensory is intact. DTRs are symmetricwith no clonus or Babinski sign. Cranial 2 through 12 are intact. Cerebellar testing isnormal.Test Results: CBC, BMP, alcohol, hCG and tox screen are all negative. TSH is within normallimits. CT of the head interpreted radiologist reveals no process.Emergency Department Course and Treatment: Because there is no prior history of psychiatricdisorder and she is having both auditory and visual hallucinations a CT of the head wasobtained to rule out any intracranial process. CBC, BMP, amphetamine, alcohol and TSH wereobtained. The tox was positive for amphetamine which may secondary to the vdfh-vrf-zxhmpskiaccrbbuye she has taken recently. Serum test was negative.Treatment Plan: Radha who is the licensed practical nurse instructor on for the counselor was paged. She ispresently at another facility. Patient has significant depression she needs urgentintervention. Since she is not doing well at home with poor social interactions recommendeither acute outpatient visit with antidepressant versus hospitalization.Dispositio n: Pending evaluation by Radha licensed practical nurse instructor from the counseling centerImpression:1. Depression, major2. Unintentional weight loss secondary #13. Auditory and visual hallucinationThis note was generated with weezim.comation software. It may contain incorrect words,spelling, and punctuation that were not noted in review of the chart prior to signingED Disposition- Plan for ED Patient:Chief Complaint: Mental HealthReferrals:Elly La MD [Primary Care Provider] -What to do if you have ProblemsFor any increased pain, shortness of breath, bleeding, nausea or vomiting, chest pain, or anyunexpected problems, contact your Primary Care Provider. Call [facility] ([phone])or report to the closest Emergency Room.Call 911 if necessary.06/08/18 1713 Date Levi Jarretto [facility] Signature (If Indicated): Date CC: Hans La MD; Counseling Center Normal [facility] ,Serum,hCG Quali.on 06-08-2018 HCG Qual triggr < 1 Normal =>Qualitati ve [facility] Comment on above: Performed By: #### L 006.9386 ####[facility] [address] [place], [place], [id number] HCGSQUAL Negative Normal 0-9 Nonpreg [facility] Comment on above: Performed By: #### L 088.6569 ####[facility] [address] [place], [place], [id number] Thyroid Stim Hormone (TSH)on 06-08-2018 Thyroid stimulating hormone (TSH) 0.38 uIU/mL Normal 0.358-3.74 [facility] Comment on above: Performed By: #### L 500.2500, L501.9520 ####[facility] [address] [place], [place], [id number] Urine Drug Screen (VISTA)on 06-08-2018 AMPHETAMINES Positive High <1000 ng/mL [facility] Comment on above: Performed By: #### L 505.5000 ####[facility] [address] [place] [address] BARBITIURATES Negative Normal < 200 ng/mL [facility] Comment on above: Performed By: #### L 505.5000 ####[facility] [address] [place] [address] BENZODIAZIPINE Negative Normal < 200 ng/mL [facility] Comment on above: Performed By: #### L 505.5000 ####[facility] [address] [place] [address] COCAINE Negative Normal < 300 ng/mL [facility] Comment on above: Performed By: #### L 505.5000 ####[facility] [address] [place] [address] ECSTACY Negative Normal < 500 ng/mL [facility] Comment on above: Performed By: #### L 505.5000 ####[facility] [address] [place] [address] METHADONE Negative Normal < 300 ng/mL [facility] Comment on above: Performed By: #### L 505.5000 ####[facility] [address] [place] [address] OPIATES Negative Normal < 300 ng/mL [facility] Comment on above: Performed By: #### L 505.5000 ####[facility] [address] [place] [address] PCP Negative Normal < 25 ng/mL [facility] Comment on above: Performed By: #### L 505.5000 ####[facility] [address] [place] [address] THC Negative Normal < 50 ng/mL [facility] Comment on above: Performed By: #### L 505.5000 ####[facility] [address] [place], [address] VISTA UDS PH 6 Normal [facility] Comment on above: Performed By: #### L 505.5000 ####[facility] [address] [place], [address] TO BE CONFIRMED Normal [facility] Comment on above: Result Comment: CONF IRMATORY TESTING FOR ALL POSITIVE URINE DRUG SCREENRESULTS WILL ONLY BE SENT OUT UPON PHYSICIAN ORDER.VISTA Urine Drug Screen methods provide only preliminaryanalytical test results. A more specific alternate chemicalmethod must be used in order to obtain a confirmedanalytical result. Gas chromatography/mass spectrometery(GC/MS) is the preferred confirmatory method. Clinicalconsideration and professional judgement should be appliedto any drug of abuse test result, particularly whenpreliminary positive results are used.URINE TCA TESTING MUST BE ORDERED SEPARATELY. USE TESTMNEMONIC: UTCA Performed By: #### L 505.5000 ####[facility] [address] [place], [place], [address] Vital Signs Date Time Vital Sign Value Performing Clinician Delvis english 07-08-2024 17:48-0400 Body height 165 cm ZEESHAN GOLDBERG MD [facility] 07-08-2024 17:48-0400 Body temperature 98.06 [degF] ZEESHAN GOLDBERG MD [facility] 07-08-2024 17:48-0400 Body weight 67.5 kg ZEESHAN GOLDBERG MD [facility] 07-08-2024 17:48-0400 Diastolic Blood Pressure Non-Invasive 81 mm[Hg] ZEESHAN GOLDBERG MD [facility] 07-08-2024 17:48-0400 Heart rate 100 /min ZEESHAN GOLDBERG MD [facility] 07-08-2024 17:48-0400 Respiratory rate 16 /min ZEESHAN GOLDBERG MD [facility] 07-08-2024 17:48-0400 Systolic Blood Pressure Non-Invasive 119 mm[Hg] ZEESHAN GOLDBERG MD [facility] Encounters Encounter Date Encounter Type Care Provider Facility Start: 07-20-2025 End: 07-20-2025 ambulatory HANS LA MD Facility:[facility] Start: 07-20-2025 Encounter for genera l adult medical examination without abnormal findings JEREMY CM APRN-PATHOLOGY SPECIALIST [facility] Start: 07-20-2025 End: 07-20-2025 Patient encounter [facility] Start: 07-08-2024 End: 07-08-2024 Emergency department patient visit ZEESHAN GOLDBERG MD [facility] Start: 10-08-2023 End: 10-12-2023 ambulatory JOSE F GLORIA MD Facility: Start: 10-08-2023 End: 10-12-2023 Outreach Lab JOSE F GLORIA MD [facility] Start: 10-04-2022 End: 10-04-2022 Patient encounter procedure JOSE F GLORIA MD [facility] Start: 06-29-2018 Emergency department patient visit UNKNOWN PROVIDER [facility] Start: 06-08-2018 End: 06-08-2018 Emergency department patient visit Levi Zacarias Facility:[facility] Procedures Date Procedure Procedure Detail Performing Clinician Start: 07-31-2021 Esophagogastroduodenoscopy gastric outlet reduction JOSE F GLORIA MD Start: 11-18-1992 C mandibular osteotomy JOSE F GLORIA MD Comment on above: several reconstructive operations to fac e Cholecystectomy JOSE F RAZA MD Open reduction of fr acture with internal fixation JOSE F GLORIA MD Comment on above: left leg jaw & eye orbits Tonsillectomy JOSE F GLORIA MD Immunizations Immunization Date Immunization Notes Care Provider Fa [facility] 03-07-2015 tetanus toxoid, redu tiffany diphtheria toxoid, and acellular pertussis vaccine, adsorbed JOSE F GLORIA MD [facility] Payers Date Payer Category Payer Medicaid 2023 Medicaid [id number] 2023 Unknown [id number] 2021 Private Health Insurance [id number] 2018 Self-pay 1975 Unknown [id number] [id number] 1975 Unknown [id number] [id number] [id number] 1975 Unknown [id number] [id number] [id number] 1975 Unknown [id number] Social History Date Type Detail Facility Start: 07-31-2019 Tobacco smoking status Ex-smoker (fi nding) [facility] Comment on above: no tobacco smoke exp osure Sex Assigned At Female [facility] Sexual O[facility] Start: 05-13-2019 Sex Female (finding) [facility] Functional Status Date Assessment Result Facility 07-08-2024 Functional Status Independent [facility] 07-08-2024 Functional Status Standard Safet y ID band on, Call device within reach, Bed in low position, Wheels locked [facility] Mental Status Date Assessment Result Facility 07-08-2024 Mental Status Orientation Oriented x 4 [facility] 07-08-2024 Mental Status [facility] Discharge instructions 07-08-2024 Note Date & Type Note Facility 07-08-2024 Hospital Discharg e instructions Patient Education 07/08/2024 18:41:44 Lower Extremity Contusion Lower Extremity Contusion You have a contusion (bruise) of a lower extremity (leg, knee, ankle, foot, or toe). Symptoms include pain, swelling, and skin discoloration. No bones are broken. This injury may take from a few days to a few weeks to heal. During that time, the bruise may change from reddish in color, to purple-blue, to green-yellow, to yellow-brown. Home care Unless another medicine was prescribed, you can take acetaminophen, ibuprofen, or naproxen to control pain. (If you have chronic liver or kidney disease or ever had a stomach ulcer or gastrointestinal bleeding, talk with your doctor before using these medicines.) Elevate the injured area to reduce pain and swelling. As much as possible, sit or lie down with the injured area raised about the level of your heart. This is especially important during the first 48 hours. Ice the injured area to help reduce pain and swelling. Wrap a cold source (ice pack or ice cubes in a plastic bag) in a thin towel. Apply to the bruised area for 20 minutes every 1 to 2 hours the first day. Continue this 3 to 4 times a day until the pain and swelling goes away. If crutches have been advised, do not bear full weight on the injured leg until you can do so without pain. You may return to sports when you are able to put full weight and impact on the injured leg without pain. Follow up Follow up with your healthcare provider or our staff as advised. Call if you are not improving within the next 1 to 2 weeks. When to seek medical advice Call your healthcare provider right away if any of these occur: Increased pain or swelling Foot or toes become cold, blue, numb or tingly Signs of infection: Warmth, drainage, or increased redness or pain around the injury Inability to move the injured area , or any joints below the injured area. Frequent bruising for unknown reasons [id number] [employer]. [address] [place] [address]. All rights reserved. This information is not intended as a substitute for professional medical care. Always follow your healthcare professional's instructions. Follow Up Care 07/08/2024 17:49:25 With:HANS LA MD Address: [address] [place] [address]- When:2-4 days [facility] Clinical Note 07-08-2024 Note Date & Type Note Facility 07-08-2024 Note Discharge Instructions Thank you for allowing [facility] to assist you with your healthcare needs. The following is important discharge information regarding your hospital visit. Diagnosis from Today's Visit Contusion of toe of left foot What to Do Next Instructions from Your Care Team Your x-ray shows no evidence of fracture or dislocation. You most likely have a severe contusion to the toe. Recommend ibuprofen 800mg three times daily for 5 days. Rest, ice, and elevation. No qualifying data available. Post Acute Orders No qualifying data available. You Need to Schedule the Following Appointments Follow Up with HANS LA MD When:Within 2-4 days Where:[address] [place] [address]- Allergies NKA Medications Please ask your primary doctor or pharmacist before taking any other medication not listed, including over the counter drugs, herbal medications, vitamins and or supplements as they may interact with your home medications. What How Much When Why Instructions Last Dose New ibuprofen (ibuprofen 800 mg oral tablet) 1 tab(s) by mouth Three (3) times a day Duration: 5 Days Printed Prescription Unchanged clobetasol topical (clobetasol 0.05% topical ointment) 1 application Topical Two (2) times a day Vulvitis Duration: 28 Days Unchanged estradiol topical (Estrace Vaginal 0.1 mg/ g vaginal cream) 1 gram(s) Vaginal Once a day Duration: 21 Days Unchanged ethinyl estradiol-norethindrone ( Fe 1.5/ 30 oral tablet) 1 tab(s) by mouth Once a day Unchanged ethinyl estradiol-norethindrone ( Fe 1.5 30 oral tablet) 1 tab(s) by mouth Once a day Unchanged loratadine (loratadine 10 mg oral capsule) 1 cap by mouth Once a day before a meal Unchanged paliperidone (Invega Hafyera 1092 mg/ 3.5 mL intramuscular suspension, extended release) 1,092 Milligram Intramuscular Every 6 months shake well before using Unchanged vortioxetine (Trintellix 20 mg oral tablet) 1 tab(s) by mouth Once a day Please take this list to your next doctor s visit. Bring all medications you take, including over the counter medications, herbals and other supplements with you to your doctor s visit. Patients and families are reminded to discard old lists and to update any records with all medication providers or retail pharmacies. Education Materials Lower Extremity Contusion You have a contusion (bruise) of a lower extremity (leg, knee, ankle, foot, or toe). Symptoms include pain, swelling, and skin discoloration. No bones are broken. This injury may take from a few days to a few weeks to heal. During that time, the bruise may change from reddish in color, to purple-blue, to green-yellow, to yellow-brown. Home care Unless another medicine was prescribed, you can take acetaminophen, ibuprofen, or naproxen to control pain. (If you have chronic liver or kidney disease or ever had a stomach ulcer or gastrointestinal bleeding, talk with your doctor before using these medicines.) Elevate the injured area to reduce pain and swelling. As much as possible, sit or lie down with the injured area raised about the level of your heart. This is especially important during the first 48 hours. Ice the injured area to help reduce pain and swelling. Wrap a cold source (ice pack or ice cubes in a plastic bag) in a thin towel. Apply to the bruised area for 20 minutes every 1 to 2 hours the first day. Continue this 3 to 4 times a day until the pain and swelling goes away. If crutches have been advised, do not bear full weight on the injured leg until you can do so without pain. You may return to sports when you are able to put full weight and impact on the injured leg without pain. Follow up Follow up with your healthcare provider or our staff as advised. Call if you are not improving within the next 1 to 2 weeks. When to seek medical advice Call your healthcare provider right away if any of these occur: Increased pain or swelling Foot or toes become cold, blue, numb or tingly Signs of infection: Warmth, drainage, or increased redness or pain around the injury Inability to move the injured area , or any joints below the injured area. Frequent bruising for unknown reasons [phone] [employer]. [address] [place] [address]. All rights reserved. This information is not intended as a substitute for professional medical care. Always follow your healthcare professional's instructions. Additional Information VACCINATE! IT SAVES LIVES! Members of the community who have not yet received the COVID-19 vaccine and would like to receive it can visit one of [facility] vaccine clinics. There are many vaccine clinic locations within the [facility]. For locations and available times, please visit www.gettheshot.coronavirus.[place].gov/. It is important to note that some COVID mobile vaccine clinics are held outdoors and may be canceled in rainy or stormy conditions. To learn more about pediatric vaccinations (ages 5-11), we invite you to visit the [facility] webpage. https://www.[facility].org/pages/2 207-Fdsru-Sqjdjygarot-Frequently-Asked -Questions.html To learn more about the COVID-19 vaccine, we invite you to visit the CDC website for a list of frequently asked questions. https://www.cdc.gov/coronavirus/2019-n cov/vaccines/faq.html [facility] Patient Portal Access Instructions: Stay connected with your healthcare team and access your personal medical information anytime with the [facility] Patient Portal. If you would like a full copy of your medical records please contact the [facility] Medical Records Department Saturday through Saturday between 8a.m. and 4:30p.m. Please follow the directions below to access the portal: 1.Access the email account you provided upon registration to the [facility].2.Look for an invitation email from [facility].3.Open the email and access the invitation link: Accept Invitation to [facility]4.Fill in the required hall to create your account. Sign into [email or web address] with your username and password that you created in the above steps to stay up to date. You can then view a summary of results, a summary of your visits, and the ability to download your summaries to your computer or send the information securely to a physician. Remember that your healthcare information is confidential, so carefully consider who you will allow to register on the [facility] Patient Portal for access to your information. You can also access the [facility] Patient Portal on the [employer]. Simply click on Health Records under Health Data and then click on the [employer] logo. HOW TO SAFELY DISPOSE OF PRESCRIPTION MEDICATIONS Please use one of the following methods to safely dispose of your unused medications. 1.Use a drug disposal kit: the drug disposal pouch allows you to safely discard your old and unused drugs. Ask your nurse to give you one when you are discharged.2.Visit a local take-back location: Many local pharmacies and police departments have programs that collect old and unwanted prescription drugs. Call your local pharmacy or go to http://Easy Voyage.Alluring Logic/9O7Aj3y to find one close to you.3.Make use of household items: Use cat litter or old coffee grounds to dispose medications if other options are not available. Mix your drugs with these household products, seal them in an airtight container and throw it into the garbage. Call [facility]: [phone] to be sure your drugs can be disposed of in this way. Some medicines may require a different approach.4.Never flush your medications down the toilet. IF YOU HAVE BEEN PRESCRIBED AN OPIOIDS FOR PAIN If you have been prescribed an opioid (such as hydrocodone, oxycodone or morphine), it is critical to understand the possible side effects and risks of opioid pain medications. Even when taken as directed, opioids can have several side effects including: Tolerance, meaning you might need to take more of a medication for the same pain relief. Nausea, vomiting and/or constipation. Sleepiness, dizziness, dry mouth, confusion, depression or itching. Physical dependence, meaning you have withdrawal symptoms when a medication is stopped ? this can develop within a few days. KNOW YOUR RESPONSIBILITIES It is important to know exactly how much and how often to take the opioid pain medications you are prescribed. Never take opioids in higher amounts or more often than prescribed. Do not combine opioids with alcohol or other drugs that cause drowsiness, such as benzodiazepines, also known as benzos, including diazepam and alprazolam, muscle relaxants or sleep aids. Never sell or share prescription opioids. This is illegal. Store opioids in a secure place and out of reach of others (including children, family, friends and visitors). The last page(s) of this document has been signed and retained as a CHART COPY Signatures Patient Education Materials Lower Extremity Contusion Medication Leaflets My discharge plan and instructions have been reviewed and explained to me and I,UZMA URBINA understand my current condition and have read and understand these discharge instructions. I have received a written copy of the plan/instructions. If I have questions, I am aware that I should contact my doctor. Patient/Dock Clerk Signature: _ Date/Time: Relationship to Patient: Witness Name/Signature: Date/Time: [facility] Clinical Note 07-08-2024 Note Date & Type Note Facility 07-08-2024 Note ORIGINAL EXAMINATION: THREE XRAY VIEWS OF THE LEFT FOOT COMPARISON: Left foot radiograph 10/09/2019 HISTORY: ORDERING SYSTEM PROVIDED HISTORY: Reason for Exam: pain, great toe injury FINDINGS: No acute fracture or dislocation. Bony alignment is within normal limits. Stable appearance of 1.1 cm around lucency in the 1st proximal phalanx, which is benign appearing. Calcific density lateral to the 5th metatarsal head. Small lucency in the anterior calcaneus is unchanged from prior and may represent a benign-appearing lesion such as a lipoma. Moderate scattered degenerative changes. Small calcaneal Achilles enthesophyte. No significant joint effusion. Mild soft tissue swelling over the 1st digit. IMPRESSION: No acute fracture or dislocation. Mild soft tissue swelling over the 1st digit. Calcific density lateral to the 5th metatarsal head may represent sequela of prior insult or may be external in nature. Correlate with physical exam. Additional chronic findings as above. I have personally reviewed the images and agree with the resident's findings and interpretation. Interpreted by: Oni Arroyo Preliminary Report By: Philip Isaac Electronically signed By Oni Arroyo Dictated Date: 07/08/2024 6:28:06 PM Prelim Date: 07/08/2024 6:33:02 PM Sign Date: 07/08/2024 8:49:00 PM Ordering Provider: TOMI RIZZO [facility] Evaluation + Plan note 10-08-2023 Radiology Note Date & Type Note Facility 10-08-2023 Evaluation + Plan note Future Scheduled TestsMA Mammo Screening Bilateral w/ Jake 10/08/23 [facility] Evaluation + Plan note 01-22-2022 Laboratory Note Date & Type Note Facility 01-22-2022 Evaluation + Plan note Future Scheduled TestsThyroid Stimulating Hormone 01/22/22Complete Blood Count 01/22/22Lipid Profile 01/22/22Complete Metabolic Panel 01/22/22 [facility] Evaluation + Plan note Radiology Note Date & Type Note Facility Evaluation + Plan note Future Appointments Appointment Date:09/29/2025 02:30:00 PM Scheduled Provider:JEREMY CM Location:[facility] Appointment Type:PC OV Controlled Medication Future Scheduled TestsMA Mammo Screening Bilateral w/ Jake 12/28/24 [facility] Hospital course Narrative Note Date & Type Note Facility Hospital course Narrative No data available for this section [facility] Hospital Discharge instructions Note Date & Type Note Facility Hospital Discharge instructions No data available for this section [facility] Progress note Note Date & Type Note Facility Progress note No data available for this section [facility] Summary Purpose Family History No Family History Records FoundNo Family History Records Found No data available for this section No data available for this section No Family History Records Found No data available for this section No Family History Records Found Advance Directives No Advanced Directives Records FoundNo Advanced Directives Records FoundNo Advanced Directives Records FoundNo Advanced Directives Records Found Additional Source Comments INFORMATION SOURCE (unrecogn ized section and content) DATE CREATED AUTHOR 06/09/2018 [facility] DATE CREATED AUTHOR AUTHOR'S ORGANIZ ATION 12/12/2018 [facility] DATE CREATED AUTHOR AUTHOR'S ORGANIZ ATION 07/13/2024 [facility] ([place]) DATE CREATED AUTHOR AUTHOR'S ORGANIZ ATION 07/28/2025 [facility] Care Team (unrecognized sect ion and content) Care Team Personnel Name: HANS LA MD Position: P4 Physician - Primary Care Member Role: Primary Care Physician Address: Address: [address] [place] [address] Care Team Related Persons Name: MANAV URBINA Name: NONE, Patient Care team informatio n (unrecognized section and content) Care Team Personnel Name: HANS LA MD Position: P4 Physician - Primary Care Member Role: Primary Care Physician Address: Address: [address] [place] [address] Care Team Related Persons Name: MANAV URBINA Name: NONE, Care Team Personnel Name: HANS LA MD Position: P4 Physician - Primary Care Member Role: Primary Care Physician Address: Address: [address] [place] [address] Care Team Related Persons Name: MANAV URBINA Name: NONE, Care Team Personnel Name: HANS LA MD Position: P4 Physician - Primary Care Member Role: Primary Care Physician Address: [address] [place] [address] Telecom: Care Team Related Persons Name: MANAV URBINA Name: NONE, FOR RECORDS PERTAINING TO PATIENTS WHO ARE OR HAVE BEEN ENROLLED IN A CHEMICAL DEPENDENCY/SUBSTANCEABUSE PROGRAM, SOME INFORMATION MAY BE OMITTED. This clinical summary was aggregated from multiple sources. Caution should be exercised in using it in the provision of clinical care. This summary normalizes information from multiple sources, and as a consequence, information in this document may materially change the coding, format and clinical context of patient data. In addition, data may be omitted in some cases. CLINICAL DECISIONS SHOULD BE BASED ON THE PRIMARY CLINICAL RECORDS. [facility] provides no warranty or guarantee of the accuracy or completeness of information in this document.
[2025-10-31 17:29] VITALS: BP 122/65; PULSE 100; RESP 16; TEMP 36.6; O2SAT 98
== END 2025-10-31 17:37 | disposition home or self-care (01) ==
PROVIDERS: Emergency Provider Emergency Medicine; PCP Nurse Practitioner Family; Visit Provider Emergency Medicine
DX: S93.402A Sprain of unspecified ligament of left ankle, initial encounter (principal); S80.02XA Contusion of left knee, initial encounter; S42.402A Unspecified fracture of lower end of left humerus, initial encounter for closed fracture; W00.0XXA Fall on same level due to ice and snow, initial encounter; Z79.899 Other long term (current) drug therapy
CPT/HCPCS: 29125; 73080; 73564; 73610; 73630; 99283

== ENCOUNTER → 2025-11-12 | Outpatient (CLI) | payer MEDICARE, MEDICAID, SELFPAY ==
--- OUTSIDE RECORDS SUMMARY | 2025-11-12 15:54 | XMS RPT_ITS | CCD ---
Author Organization [facility] Care Team Providers Care Individual Pension Consultant Name Role Phone ZacariasZacariaso Unavailable HANS Herrera [...] Primary Care Unavailable JEREMY ASHER Attending Yoko espionza Medications Current Medications Medication Drug Class(es) Dates [...] RECURRENCES, # 60 gram(s), 3 Refill(s), Pharmacy: [facility] STORE [id number], 165.2, cm, 12/28/24 14:30:00 EST, Height, 74.1, kg, 12/28/24 14:30:00 EST, Dosing Weight Start Date: 04/21/25 Status: Ordered Medication Dispense Status: Completed Quantity: 60.0 Unit: g Total Allowed Fills: 1 Fills Dispensed: 0 Start: 10-08-2023 End: 01-28-2024 clobetasol 0.05% topical oin tment Apply 1 robert, Topical, BID, # 60 gram(s), 3 Refill(s), Pharmacy: [facility] #[id number], Ointment, 165.2, cm, 10/08/23 14:57:00 EST, Height, 70.5, kg, 10/08/23 14:57:00 EST, Dosing Weight Start Date: 10/08/23 Stop Date: 01/28/24 Status: Ordered cyclobenzaprine hydrochloride 10 mg oral tablet (2 sources) Muscle Relaxant Start: 06-30-2025 End: 07-30-2025 cyclobenzaprine 10 mg oral tablet Dose : 10 mg = 1 tab(s), Oral, BID, PRN for spasm, # 60 tab(s), 0 Refill(s), Pharmacy: [facility]/pharmacy #[id number], Chronic low back pain, 163, cm, [...] BID, # 90 tab(s), 2 Refill(s), [facility]acy: [facility] 167, cm, 04/27/22 14:29:00 EDT, Height, kg, 04/27/22 14:29:00 EDT, Dosing Weight Start Date: 04/27/22 Status: Ordered estradiol 0.01 mg vaginal insert (3 sources) Estrogen Start: 12-28-2024 Vagifem 10 mcg vaginal insert Dose : 10 mcg = 1 insert, Vaginal, 2x/Wk, # 8 insert, 11 Refill(s), Pharmacy: [facility]/pharmacy #[id number], 165.2, cm, 12/28/24 14:30:00 EST, Height, kg, 12/28/24 14:30:00 EST, Dosing Weight Start Date: 12/28/24 Status: Ordered Medication Dispense Status: Completed Quantity: 8.0 Unit: insert Total Allowed Fills: 12 Fills Dispensed: 0 Start: 05-16-2023 End: 07-18-2023 Estrace Vaginal 0.1 mg/g vag inal cream 1 gram(s), Vaginal, qDay, # 42.5 gram(s), 2 Refill(s), Pharmacy: [facility] #[id number], 165, cm, 05/16/23 10:57:00 EDT, Height Start Date: 05/16/23 Stop Date: 07/18/23 Status: Ordered ethinyl estradiol 0.03 mg / ferrous fumarate 75 mg / norethindrone 1.5 mg oral tablet (6 sources) Estrogen Start: 03-25-2025 take 1 tablet by mouth once daily oral tablet See Instructions, TAKE 1 TABLET BY MOUTH EVERY DAY, # 84 tab(s), 2 Refill(s), Pharmacy: [facility]/pharmacy #[id number], 165.2, cm, 12/28/24 14:30:00 EST, Height, kg, 12/28/24 14:30:00 EST, Dosing Weight Start Date: 03/25/25 Status: Ordered Medication Dispense Status: Completed Quantity: 84.0 Unit: tab(s) Total Allowed Fills: 3 Fills Dispensed: 0 Start: 09-30-2023 take 1 tablet by vangie th once daily oral tablet Dose = 1 tab(s), Oral, qDay, # 90 tab(s), 3 Refill(s), [facility] #[id number], 165.2, cm, 10/08/23 14:57:00 EST, Height, kg, 10/08/23 14:57:00 EST, Dosing Weight Start Date: 10/08/23 Status: Ordered Start: 09-17-2022 take 1 tablet by once daily oral tablet Dose = 1 tab(s), Oral, qDay, # 28 tab(s), 11 Refill(s), Pharmacy: [facility] #[id number], 165, cm, 09/17/22 14:58:00 EDT, Height Start [...] TID, # 90 cap(s), 2 Refill(s), Pharmacy: [facility]/pharmacy #[id number], Chronic low back pain Neuropathy, 163, [...] qDayAC, # 90 cap(s), 3 Refill(s), Pharmacy: [address], 165, cm, 07/22/20 14:49:00 EDT, Height, [...] release Dose : 410 mg =, Intramuscular, o4dquyr, # 1.32 mL, 0 Refill(s) Start Date: [...] qDay, # 90 tab(s), 3 Refill(s), Pharmacy: [facility]/pharmacy #[id number], 165.2, cm, 12/28/24 14:30:00 EST, Height, [...] 06/27/2022, # 60 tab(s), 0 Refill(s), Pharmacy: [facility] [address] Chronic low back pain, [...] qDay, # 28 tab(s), 11 Refill(s), Pharmacy: [facility] [address] 167, cm, 04/27/22 14:29:00 [...] Basophil, Absolute 0.0 10 3/mcL Normal 0.0-0.3 [facility] Comment on above: Performed By: #### G FR, LIPID, ANEU, ADIFF, CMP, CBC #### [address] [address] Basophils/100 WBC (Bld) 0.4 % Normal 0.0-2.5 [facility] Comment on above: Performed By: #### G FR, LIPID, ANEU, ADIFF, CMP, CBC #### [address] [address] Eosinophil, Absolute 0.7 10 3/mcL Normal 0.0-0.7 [facility] Comment on above: Performed By: #### G FR, LIPID, ANEU, ADIFF, CMP, CBC #### [address] [address] Eosinophils/100 WBC (Bld) 9.3 % High 0.0-6.0 [facility] Comment on above: Performed By: #### G FR, LIPID, ANEU, ADIFF, CMP, CBC #### [address] [address] Lymphocyte, Absolute 2.8 10 3/mcL Normal 0.9-4.3 [facility] Comment on above: Performed By: #### G FR, LIPID, ANEU, ADIFF, CMP, CBC #### [address] [address] Lymphocytes/100 WBC (Bld) 37.6 % Normal 20.0-40.0 [facility] Comment on above: Performed By: #### G FR, LIPID, ANEU, ADIFF, CMP, CBC #### [address] [address] Monocyte, Absolute 0.7 10 3/mcL Normal 0.1-1.4 [facility] Comment on above: Performed By: #### G FR, LIPID, ANEU, ADIFF, CMP, CBC #### [address] [address] Monocytes/100 WBC (Bld) 9.1 % Normal 2.0-13.0 [facility] Comment on above: Performed By: #### G FR, LIPID, ANEU, ADIFF, CMP, CBC #### [address] [address] Neutrophils/100 WBC (Bld) 43.6 % Low 50.0-75.0 [facility] Comment on above: Performed By: #### G FR, LIPID, ANEU, ADIFF, CMP, CBC #### [address] [address] .GFRon 07-20-2025 Estimated Glomerular Filtration Rate 73 ml/min/1.73sqm Normal [facility] Comment on above: Result Comment: Stages of [...] FR, LIPID, ANEU, ADIFF, CMP, CBC #### [address] [address] .NEUABSon 07-20-2025 Neutrophil, Absolute 3.2 10 3/mcL Normal 2.3-8.1 [facility] Comment on above: Performed By: #### G FR, LIPID, ANEU, ADIFF, CMP, CBC #### [address] [address] CBCon 07-20-2025 Erythrocyte distribution width (RBC) [Ratio] 14.3 % Normal 11.5-15.5 [facility] Comment on above: Performed By: #### G FR, LIPID, ANEU, ADIFF, CMP, CBC #### [place] [address] Hematocrit (Bld) [Volume fraction] 40.7 % Normal 34.0-46.0 [facility] Comment on above: Performed By: #### G FR, LIPID, ANEU, ADIFF, CMP, CBC #### [place] [address] Hgb 13.6 G/dL Normal 12.0-16.0 [facility] Comment on above: Performed By: #### G FR, LIPID, ANEU, ADIFF, CMP, CBC #### [place] [address] MCH (RBC) [Entitic mass] 29.2 pg Normal 27.0-33.0 [facility] Comment on above: Performed By: #### G FR, LIPID, ANEU, ADIFF, CMP, CBC #### [place] [address] MCHC 33.5 G/dL Normal 32.0-36.0 [facility] Comment on above: Performed By: #### G FR, LIPID, ANEU, ADIFF, CMP, CBC #### [place] [address] MCV (RBC) [Entitic vol] 87.0 fL Normal 80.0-99.0 [facility] Comment on above: Performed By: #### G FR, LIPID, ANEU, ADIFF, CMP, CBC #### [place] [address] Platelet 280 10 3/mcL Normal 150-450 [facility] Comment on above: Performed By: #### G FR, LIPID, ANEU, ADIFF, CMP, CBC #### [place] [address] Platelet mean volume (Bld) [Entitic vol] 7.4 fL Normal 6.6-10.5 [facility] Comment on above: Performed By: #### G FR, LIPID, ANEU, ADIFF, CMP, CBC #### [address] [address] RBC 4.68 10 6/mcL Normal 4.10-5.30 [facility] Comment on above: Performed By: #### G FR, LIPID, ANEU, ADIFF, CMP, CBC #### [address] [address] WBC 7.4 10 3/mcL Normal 4.5-10.8 [facility] Comment on above: Performed By: #### G FR, LIPID, ANEU, ADIFF, CMP, CBC #### [address] [address] CMPon 07-20-2025 Albumin Level 3.2 G/dL Low 3.5-5.0 [facility] Comment on above: Performed By: #### G FR, LIPID, ANEU, ADIFF, CMP, CBC #### [place] [id number] Albumin/Globulin [Mass ratio] 0.8 {ratio} Low 1.1-2.5 [facility] Comment on above: Performed By: #### G FR, LIPID, ANEU, ADIFF, CMP, CBC #### [address] [address] ALP [Catalytic activity/Vol] 81 U/L Normal 40-135 [facility] Comment on above: Performed By: #### G FR, LIPID, ANEU, ADIFF, CMP, CBC #### [address] [address] ALT [Catalytic activity/Vol] 18 U/L Normal 14-59 [facility] Comment on above: Performed By: #### G FR, LIPID, ANEU, ADIFF, CMP, CBC #### [address] [address] AST [Catalytic activity/Vol] 14 U/L Normal 10-40 [facility] Comment on above: Performed By: #### G FR, LIPID, ANEU, ADIFF, CMP, CBC #### [address] [address] Bili Total 0.3 mg/dL Normal 0.2-1.0 [facility] Comment on above: Result Comment: Use of this assay is not recommended for patients undergoing treatment with eltrombopag due to the potential for falsely elevated results. Performed By: #### G FR, LIPID, ANEU, ADIFF, CMP, CBC #### [place] [address] BUN/Creatinine Ratio 11 ratio Normal 7-27 [facility] Comment on above: Performed By: #### G FR, LIPID, ANEU, ADIFF, CMP, CBC #### [place] [address] Calcium [Mass/Vol] 9.3 mg/dL Normal 8.4-10.2 [facility] Comment on above: Performed By: #### G FR, LIPID, ANEU, ADIFF, CMP, CBC #### [place] [address] Chloride [Moles/Vol] 101 mmol/L Normal 98-107 [facility] Comment on above: Performed By: #### G FR, LIPID, ANEU, ADIFF, CMP, CBC #### [place] [address] CO2 [Moles/Vol] 30 mmol/L High 22-29 [facility] Comment on above: Performed By: #### G FR, LIPID, ANEU, ADIFF, CMP, CBC #### [place] [address] Creatinine [Mass/Vol] 0.96 mg/dL High 0.51-0.95 [facility] Comment on above: Performed By: #### G FR, LIPID, ANEU, ADIFF, CMP, CBC #### [place] [address] Electrolyte Balance 6.0 mEq/L Normal 4.0-15.0 [facility] Comment on above: Performed By: #### G FR, LIPID, ANEU, ADIFF, CMP, CBC #### [place] [address] Globulin 4.2 G/dL Normal 2.7-4.4 [facility] Comment on above: Performed By: #### G FR, LIPID, ANEU, ADIFF, CMP, CBC #### [place] [address] [place], [place] [address] Glucose [Mass/Vol] 90 mg/dL Normal 70-105 [facility] Comment on above: Performed By: #### G FR, LIPID, ANEU, ADIFF, CMP, CBC #### [address] [address] Potassium [Moles/Vol] 4.1 mmol/L Normal 3.5-5.1 [facility] Comment on above: Performed By: #### G FR, LIPID, ANEU, ADIFF, CMP, CBC #### [address] [address] Sodium [Moles/Vol] 137 mmol/L Normal 136-145 [facility] Comment on above: Performed By: #### G FR, LIPID, ANEU, ADIFF, CMP, CBC #### [address] [address] Total Protein 7.4 G/dL Normal 6.4-8.2 [facility] Comment on above: Performed By: #### G FR, LIPID, ANEU, ADIFF, CMP, CBC #### [address] [address] Urea nitrogen [Mass/Vol] 11 mg/dL Normal 7-18 [facility] Comment on above: Performed By: #### G FR, LIPID, ANEU, ADIFF, CMP, CBC #### [address] [address] LABORATORYOrdered By: SYSTEM SYSTEM on 07-20-2025 Albumin [...] 07-20-2025 Cholesterol [Mass/Vol] 327 mg/dL High 0-200 [facility] Comment on above: Result Comment: Chol esterol Reference Interval: Less than 200 Desirable 200-239 Borderline high risk 240 and above High risk Performed By: #### G FR, LIPID, ANEU, ADIFF, CMP, CBC #### [place] [address] [place], [place] [address] Cholesterol in HDL [Mass/Vol] 51 mg/dL Normal 40-60 [facility] Comment on above: Performed By: #### G FR, LIPID, ANEU, ADIFF, CMP, CBC #### [place] [address] [place], [place] [address] Cholesterol in LDL [Mass/Vol] 247 mg/dL High 0-130 [facility] Comment on above: Performed By: #### G FR, LIPID, ANEU, ADIFF, CMP, CBC #### [place] [address] [place], [place] [address] Triglyceride [Mass/Vol] 144 mg/dL Normal 0-150 [facility] Comment on above: Result Comment: Trig lyceride Reference Interval: Less than 150 Normal 150-199 Borderline high risk 200-499 High risk 500 or higher Very high risk Performed By: #### G FR, LIPID, ANEU, ADIFF, CMP, CBC #### [place] [address] [place], [place] [address] XR FOOT MINIMUM 3 VIEWS LEFT on [...] by: Oni Arroyo Preliminary Report By: Philip Isaca Electronically signed By Oni Arroyo Dictated Date: 07/08/2024 6:28:06 PM Prelim Date: 07/08/2024 6:33:02 PM Sign Date: 07/08/2024 8:49:00 PM Ordering Provider: TOMI RIZZO [facility] ([place]) Final Surgical Pathology Rep terrell 10-14-2023 Final Surgical Pathology Report . Pathology Reports Accession: Collected Date/Time: Received Date/Time: Pathologist: [id number] 10/08/2023 15:47 EST 10/09/2023 14:02 EST JOSE MCKEON MD Final Surgical Pathology Report CORRECTED REPORT: [facility] DIAGNOSIS: A. RIGHT LABIA: - VULVAR [...] All parts labelled with patient name and [id number]. Received in formalin labeled right labia is 1 thorpe-pink tissue fragment measuring 0.6 x 0.2 cm. TS-1 B. Received in formalin labeled right peroneum is 1 thorpe tissue fragment measuring 0.5 x 0.3 cm. TS-1 Alejandra Soni, [employer] Operations Manager/ Dr. Jose Mckeon, Pathologist Dictated by Alejandra Soni MICROSCOPIC DESCRIPTION: The microscopic examination is performed, except in the case of Gross Only. Electronically Signed by Pathology Report verified by [facility] JOSE MCKEON Sign out Date: 10/14/2023 18:25 Performing Lab: [facility], [address] [place] [address] Pathology Dept Disclaimer If ancillary studies were utilized, the following Laboratory Developed Test (LDT) disclaimer will apply: Under CLIA requirements, [facility] is qualified to perform high complexity testing. For all ancillary stains, positive and negative controls stain appropriately. Performance characteristics of immunohistochemical and chromogenic in-situ hybridization tests have been determined by [facility]. These tests are used for clinical purposes, They should not be regarded as investigational or for research. Normal [facility] ([place]) Comp Metabolic Panelon 06-29 ALT enzyme act/vol 24 U/L Normal 13-69 [facility] Comment on above: Performed By: #### H EMOG, CMP3, ETOH4 #### [facility] [address] [place] [address] Calcium mass conc 9.5 mg/dL Normal 8.4-10.4 [facility] Comment on above: Performed By: #### H EMOG, CMP3, ETOH4 #### [facility] [address] [place] [address] Glucose mass conc 98 mg/dL Normal 70-100 [facility] Comment on above: Performed By: #### H EMOG, CMP3, ETOH4 #### [facility] [address] [place], [place] Urea nitrogen mass conc 14 mg/dL Normal 7-20 [facility] Comment on above: Performed By: #### H EMOG, CMP3, ETOH4 #### [facility] [address] [place], [place] ALP enzyme act/vol 56 U/L Normal 38-126 [facility] Comment on above: Performed By: #### H EMOG, CMP3, ETOH4 #### [facility] [address] [place], [place] Anion gap molar conc 8 Normal [facility] Comment on above: Performed By: #### H EMOG, CMP3, ETOH4 #### [place] [address] [address] [place], [place] AST enzyme act/vol 22 U/L Normal 15-46 [facility] Comment on above: Performed By: #### H EMOG, CMP3, ETOH4 #### [facility] [address] [place], [place] Bilirubin mass conc 0.5 mg/dL Normal 0.2-1.3 [facility] Comment on above: Performed By: #### H EMOG, CMP3, ETOH4 #### [facility] [address] [place], [place] CO2 molar conc 26 mmol/L Normal 22-30 [facility] Comment on above: Performed By: #### H EMOG, CMP3, ETOH4 #### [facility] [address] [place], [place] Creatinine mass conc 0.53 mg/dL Normal 0.52-1.25 [facility] Comment on above: Performed By: #### H EMOG, CMP3, ETOH4 #### [facility] [address] [place], [place] GFR/1.73 sq M predicted among blacks MDRD vol rate/area (S/P/Bld) mL/min/{1.73_m2} Normal >60 [facility] Comment on above: Performed By: #### H EMOG, CMP3, ETOH4 #### [place] [address] [address] [place], [place] GFR/1.73 sq M predicted among non-blacks MDRD vol rate/area (S/P/Bld) mL/min/{1.73_m2} Normal >60 [facility] Comment on above: Result Comment: Sour ce- MDRD equation with creatinine calibration to IDMS(NKDEP) eGFR not recommended for drug dose adjustment Performed By: #### H EMOG, CMP3, ETOH4 #### [place] [address] [place], [place] Protein mass conc 7.8 g/dL Normal 6.3-8.2 [facility] Comment on above: Performed By: #### H EMOG, CMP3, ETOH4 #### [place] [address] [address] [place], [place] Potassium molar conc 3.6 mmol/L Normal 3.5-5.1 [facility] Comment on above: Performed By: #### H EMOG, CMP3, ETOH4 #### [place] [address] [place], [place] Sodium molar conc 138 mmol/L Normal 137-145 [facility] Comment on above: Performed By: #### H EMOG, CMP3, ETOH4 #### [place] [address] [address] [place], [place] Albumin mass conc 4.9 g/dL Normal 3.5-5.0 [facility] Comment on above: Performed By: #### H EMOG, CMP3, ETOH4 #### [address] Chloride molar conc 103 mmol/L Normal 98-107 [facility] Comment on above: Performed By: #### H EMOG, CMP3, ETOH4 #### [place] [address] [place], [place] Drugs of Abuseon 06-29-2018 Amphetamines, Ur Positive Normal [facility] Comment on above: Performed By: #### H CGUR, THC4, DRGA4 #### [facility] [address] [facility], [place] Opiates, Ur Negative Normal [facility] Comment on above: Performed By: #### H CGUR, THC4, DRGA4 #### [facility] [address] [facility], [place] Phencyclidine (PCP), Ur Negative Normal [facility] Comment on above: Result Comment: The expected [...] By: #### H CGUR, THC4, DRGA4 #### [facility] [address] [facility], [place] Cocaine, Ur Negative Normal [facility] Comment on above: Performed By: #### H CGUR, THC4, DRGA4 #### [facility] [address] [facility], [place] Methadone, Ur Negative Normal [facility] Comment on above: Performed By: #### H CGUR, THC4, DRGA4 #### [facility] [address] [facility] [place] Barbiturates, Ur Negative Normal [facility] Comment on above: Performed By: #### H CGUR, THC4, DRGA4 #### [facility] [address] [facility], [place] Benzodiazepines, Ur Negative Normal [facility] Comment on above: Performed By: #### H CGUR, THC4, DRGA4 #### [facility] [address] [facility] [place] Oxycodone/Oxymorphin e,Ur Positive Normal [facility] Comment on above: Performed By: #### H CGUR, THC4, DRGA4 #### [facility] [address] [place], [place] Ethanol Serum/Plasmaon 06-29 Ethanol-Serum/Plasma < 0.010 Normal 0.000-0.010 [facility] Comment on above: Result Comment: NOTE : This result is for medical treatment only. Analysis performed using non-forensic procedures. Performed By: #### H EMOG, CMP3, ETOH4 #### [facility] [address] [place], [place] HCG,Urine Qualon 06-29-2018 HCG.beta subunit ( test) Ql (U) Negative Normal Negative [facility] Comment on above: Result Comment: Preg shayan is the most common reason for HCG in urine, although choriocarcinoma, hydatidiform mole, and certain nontropho- blastic malignancies also result in detectable urinary HCG levels. Sensitivity = 20mIU/mL. Performed By: #### H CGMIHAELA, THC4, DRGA4 #### [facility] [address] [place], [place] Hemogramon 06-29-2018 Erythrocyte distribution width Ratio (RBC) 13.3 % Normal 11.5-14.5 [facility] Comment on above: Performed By: #### H EMOG, CMP3, ETOH4 #### [facility] [address] [place], [place] Hematocrit Volume Fraction (Bld) 40.6 % Normal 35.0-47.0 [facility] Comment on above: Performed By: #### H EMOG, CMP3, ETOH4 #### [facility] [address] [place], [place] Hemoglobin mass conc (Bld) 13.7 g/dL Normal 11.7-16.0 [facility] Comment on above: Performed By: #### H EMOG, CMP3, ETOH4 #### [facility] [address] [place], [place] MCH Entitic mass (RBC) 30.4 pg Normal 26.0-34.0 [facility] Comment on above: Performed By: #### H EMOG, CMP3, ETOH4 #### [address] MCHC mass conc (RBC) 33.7 % Normal 32.0-36.0 [facility] Comment on above: Performed By: #### H EMOG, CMP3, ETOH4 #### [address] MCV Entitic volume (RBC) 90.2 fL Normal 79.0-98.0 [facility] Comment on above: Performed By: #### H EMOG, CMP3, ETOH4 #### [address] Platelet mean volume Entitic volume (Bld) 7.6 fL Normal 7.4-10.4 [facility] Comment on above: Performed By: #### H EMOG, CMP3, ETOH4 #### [address] Platelets #/vol (Bld) 296 10*3/uL Normal 140-440 [facility] Comment on above: Performed By: #### H EMOG, CMP3, ETOH4 #### [address] RBC #/vol (Bld) 4.50 10*6/uL Normal 3.80-5.20 [facility] Comment on above: Performed By: #### H EMOG, CMP3, ETOH4 #### [address] WBC #/vol (Bld) 8.5 10*3/uL Normal 3.6-10.7 [facility] Comment on above: Performed By: #### H EMOG, CMP3, ETOH4 #### [address] THC, Urineon 06-29-2018 THC, Ur Negative Normal [facility] Comment on above: Result Comment: Thre shold= 50 ng/mL Performed By: #### H CGUR, THC4, DRGA4 #### [address] [address] Alcohol, Blood (Medical)-Ser umon 06-08-2018 SERUM ETOH < 3.0 Normal [facility] Comment on above: Result Comment: The serum:whole blood ethanol ratio is approximately 1.14and varies slightly with hematocrit.Medical Alcohol reference interval and critical value innon-tolerant individuals; 50 - 100 Impairment 100 Intoxication 100 - 250 Severe Poisoning 250 - 400 Deep/possible fatal coma Performed By: #### L 501.9100 ####[facility] [address] [place], [address] Basic Metabolic Profile (BMP )on 06-08-2018 BUN (urea nitrogen) 12.8 RATIO Normal 10-20 [facility] Comment on above: Performed By: #### L 500.2500, L501.9520 ####[facility] [address] [place], [address] Calcium 9.0 mg/dL Normal 8.5-10.1 [facility] Comment on above: Performed By: #### L 500.2500, L501.9520 ####[facility] [address] [place], [address] Chloride 107 mmol/L Normal 98-107 [facility] Comment on above: Performed By: #### L 500.2500, L501.9520 ####[facility] [address] [place], [address] CO2 26.0 mmol/L Normal 21.0-32.0 [facility] Comment on above: Performed By: #### L 500.2500, L501.9520 ####[facility] [address] [place], [address] Creatinine 0.70 mg/dL Normal 0.55-1.02 [facility] Comment on above: Result Comment: The validity of the calculated GFR AND GFRAA in patients over70 years has not been determined. Clinical correlation isessential. Performed By: #### L 500.2500, L501.9520 ####[facility] [address] [place], [address] eGFR (non-black) 97 mL/min/{1.73_m2} Normal >60 [facility] Comment on above: Result Comment: Non- GFR Calc Performed By: #### L 500.2500, L501.9520 ####[facility] [address] [place], [address] EST GFR - AA 117 mL/min Normal >60 [facility] Comment on above: Result Comment: Afri can Cameroonian GFR Calc Performed By: #### L 500.2500, L501.9520 ####[facility] [address] [place], [address] Estimated CRCL 76.19 ml/min Normal [facility] Comment on above: Performed By: #### L 500.2500, L501.9520 ####[facility] [address] [place], [address] GAP 7 Normal 5-15 [facility] Comment on above: Performed By: #### L 500.2500, L501.9520 ####[facility] [address] [place], [address] Glucose mass conc 96 mg/dL Normal 74-106 [facility] Comment on above: Result Comment: Yaniv stover note revised GLUCOSE reference range mcuacguuv37/02/2018. Performed By: #### L 500.2500, L501.9520 ####[facility] [address] [place], [address] Potassium molar conc 3.7 mmol/L Normal 3.5-5.1 [facility] Comment on above: Performed By: #### L 500.2500, L501.9520 ####[facility] [address] [place], [address] Sodium 140 mmol/L Normal 136-145 [facility] Comment on above: Performed By: #### L 500.2500, L501.9520 ####[facility] [address] [place], [address] Urea nitrogen 9 mg/dL Normal 7-18 [facility] Comment on above: Performed By: #### L 500.2500, L501.9520 ####[facility] [address] [place], [address] Brain/Head without Contrasto n 06-08-2018 Brain/Head without Contrast [facility] [address] [place] [address]Ayema/Head without ContrastMR#: [id number] Acct: [id number]: UZMA URBINA Rep #: [id number]: 1975 F 43 From: Gadiel Samuel MDPCP: Hans La MD Status: REG ERStudy: Brain/Head without Contrast Date of Exam: 06/08/18Exam# [id number] Ordering Dr: Levi Zacarias MDSTUDY: CT BRAIN [...] at 15:31 EDTTel , Service support , CJ: Hans La MD; Levi Zacarias MD Roll Sheeting Cutter:Signed Normal [facility] CBC W/Diff, Automatedon 07- Absolute Neut 3.3 X10 3/uL Normal 2.0-7.7 [facility] Comment on above: Performed By: #### L 100.0100 ####[facility] [address] [place], [address] Basophils/100 WBC Auto (Bld) 0.2 % Normal 0-1 [facility] Comment on above: Performed By: #### L 100.0100 ####[facility] [address] [place], [address] Eosinophils/100 leukocytes 1.7 % Normal 0-5 [facility] Comment on above: Performed By: #### L 100.0100 ####[facility] [address] [place], [address] Erythrocyte distribution width Auto Ratio (RBC) 12.9 % Normal 11.6-14.6 [facility] Comment on above: Performed By: #### L 100.0100 ####[facility] [address] [place], [address] Erythrocytes (RBC) 5.03 M/mm3 Normal 4.2-5.4 [facility] Comment on above: Performed By: #### L 100.0100 ####[facility] [address] [place], [address] Hematocrit (HCT) 45.1 % Normal 37-47 [facility] Comment on above: Performed By: #### L 100.0100 ####[facility] [address] [place], [address] Hemoglobin mass conc (Bld) 15.0 g/dL Normal 12.0-15.0 [facility] Comment on above: Performed By: #### L 100.0100 ####[facility] [address] [place], [address] IM GRAN % 0.200 % Normal 0.0-0.9 [facility] Comment on above: Result Comment: IG% - Immature Granulocytes (promyelocytes, myelocytes andmetamyelocytes) > 1% indicates that a LEFT SHIFT is Present. Performed By: #### L 100.0100 ####[facility] [address] [place], [address] Lymphocytes 1.89 X10 3/ul Normal 0.83-4.51 [facility] Comment on above: Performed By: #### L 100.0100 ####[facility] [address] [place], [address] Lymphocytes/100 leukocytes 32.8 % Normal 19-41 [facility] Comment on above: Performed By: #### L 100.0100 ####[facility] [address] [place], [address] MCH 29.8 pg Normal 27.0-32.0 [facility] Comment on above: Performed By: #### L 100.0100 ####[facility] [address] [place], [address] MCHC mass conc (RBC) 33.3 g/gl Normal 32-36 [facility] Comment on above: Performed By: #### L 100.0100 ####[facility] [address] [place], [address] MCV 89.7 fL Normal 81-99 [facility] Comment on above: Performed By: #### L 100.0100 ####[facility] [address] [place], [address] Monocytes/100 leukocytes 8.7 % Normal 0-10 [facility] Comment on above: Performed By: #### L 100.0100 ####[facility] [address] [place], [address] Neutrophils/100 WBC Auto (Bld) 56.4 % Normal 47-70 [facility] Comment on above: Performed By: #### L 100.0100 ####[facility] [address] [place], [address] Platelet mean volume (PMV) 9.1 fL Normal 6.2-12.0 [facility] Comment on above: Performed By: #### L 100.0100 ####[facility] [address] [place], [address] Platelets 283 10*3/uL Normal 150-450 [facility] Comment on above: Performed By: #### L 100.0100 ####[facility] [address] [place], [address] RDW SD 42.0 fl Normal 35.1-43.9 [facility] Comment on above: Performed By: #### L 100.0100 ####[facility] [address] [place], [address] WBC (Leukocytes) 5.8 10*3/uL Normal 4.4-11.0 [facility] Comment on above: Performed By: #### L 100.0100 ####[facility] [address] [place], [address] Discharge Instructionon 05-[address] [facility] [address] [facility] [place], [place] [address]Vqeeqhozz Qxlhrhwofsq71/22/18 1932#: [id number] Acct: [id number]: UZMA URBINA Rep #: [id number]: 1975 43 [...] your Primary Care Provider. Call [facility] ([phone])or report to the closest Emergency Room.Call 911 if necessary.06/08/181931 Date Rc Álvarez DOCosigner Signature (If Indicated): Date CC: Hans La MD [facility] Emergency Department Summary on 06-08-[address] [facility] [address] [place], [place] [address]Owympiuxz Department Rspptwz77/22/181931MR#: [id number] Acct: [id number]: UZMA URBINA Raymond Rep #: [id number]: 1975 [...] and auditory hallucinations]This note was generated with Wandrianation software. It may contain incorrect words,spelling, and [...] your Primary Care Provider. Call [facility] ([phone])or report to the closest Emergency Room.Call 911 if necessary.06/08/18 193 Date Remus Preeti DOCosigner Signature (If Indicated): Date CC: Hans La MD [facility] Emergency Department Summary [facility] [address] [place], [place] [address]Zcotpykdw Department Ufvwzci65/22/18 1708#: [id number] Acct: [id number]: URBINAUZMA Raymond Rep #: [id number]: 1975 43 [...] any suicidal homicidal thoughts. She has taken sder-kuu-fisxccb medication recently.She does admit to smoking. She [...] for amphetamine which may secondary to the vfgh-mnz-fmndtwfavsglfhggv she has taken recently. Serum test was negative.Treatment Plan: Radha who is the licensed direct entry midwife on for the counselor was paged. She ispresently at another facility. Patient has significant depression she needs urgentintervention. Since she is not doing well at home with poor social interactions recommendeither acute outpatient visit with antidepressant versus hospitalization.Dispositio n: Pending evaluation by Radha licensed direct entry midwife from the counseling centerImpression:1. Depression, major2. Unintentional weight loss secondary #13. Auditory and visual hallucinationThis note was generated with Wandrianation software. It may contain incorrect words,spelling, and punctuation that were not noted in review of the chart prior to signingED Disposition- Plan for ED Patient:Chief Complaint: Mental HealthReferrals:Elly La MD [Primary Care Provider] -What to do if you have ProblemsFor any increased pain, shortness of breath, bleeding, nausea or vomiting, chest pain, or anyunexpected problems, contact your Primary Care Provider. Call [facility] ([phone])or report to the closest Emergency Room.Call 911 if necessary.06/08/[address] [facility] CITYosign Signature (If Indicated): Date CC: Hans La MD; Counseling Center Normal [facility] ,Serum,hCG Quali.on 06-08-2018 HCG Qual triggr < 1 Normal =>Qualitati ve [facility] Comment on above: Performed By: #### L 316.7307 ####[facility] [address] [place], [place], [address] HCGSQUAL Negative Normal 0-9 Nonpreg [facility] Comment on above: Performed By: #### L 574.4104 ####[facility] [address] [place], [place], [address] Thyroid Stim Hormone (TSH)on 06-08-2018 Thyroid stimulating hormone (TSH) 0.38 uIU/mL Normal 0.358-3.74 [facility] Comment on above: Performed By: #### L 500.2500, L501.9520 ####[facility] [address] [place], [place], [address] Urine Drug Screen (VISTA)on 06-08-2018 AMPHETAMINES Positive High <1000 ng/mL [facility] Comment on above: Performed By: #### L 505.5000 ####[facility] [address] [place] [address] BARBITIURATES Negative Normal < 200 ng/mL [facility] Comment on above: Performed By: #### L 505.5000 ####[facility] [address] [place] [address] BENZODIAZIPINE Negative Normal < 200 ng/mL [facility] Comment on above: Performed By: #### L 505.5000 ####[facility] [address] [place] [address] COCAINE Negative Normal < 300 ng/mL [facility] Comment on above: Performed By: #### L 505.5000 ####[facility] [address] [place] [address] ECSTACY Negative Normal < 500 ng/mL [facility] Comment on above: Performed By: #### L 505.5000 ####[facility] [address] [place] [address] METHADONE Negative Normal < 300 ng/mL [facility] Comment on above: Performed By: #### L 505.5000 ####[facility] [address] [place] [address] OPIATES Negative Normal < 300 ng/mL [facility] Comment on above: Performed By: #### L 505.5000 ####[facility] [address] [place] [address] PCP Negative Normal < 25 ng/mL [facility] Comment on above: Performed By: #### L 505.5000 ####[facility] [address] [place] [address] THC Negative Normal < 50 ng/mL [facility] Comment on above: Performed By: #### L 505.5000 ####[facility] [address] [place], [address] VISTA UDS PH 6 Normal [facility] Comment on above: Performed By: #### L 505.5000 ####[facility] [address] [place], [address] TO BE CONFIRMED Normal [facility] Comment on above: Result Comment: CONF [...] TESTMNEMONIC: UTCA Performed By: #### L 505.5000 ####[facility] [address] [place], [place], [address] Vital Signs Date Time Vital Sign Value Performing Clinician Delvis english 07-08-2024 17:48-0400 Body height 165 cm ZEESHAN GOLDBERG MD [facility] 07-08-2024 17:48-0400 Body temperature 98.06 [degF] ZEESHAN GOLDBERG MD [facility] 07-08-2024 17:48-0400 Body weight 67.5 kg ZEESHAN GOLDBERG MD [facility] 07-08-2024 17:48-0400 Diastolic Blood Pressure Non-Invasive 81 mm[Hg] ZEESHAN GOLDBERG MD [facility] 07-08-2024 17:48-0400 Heart rate 100 /min ZEESHAN GOLDBERG MD [facility] 07-08-2024 17:48-0400 Respiratory rate 16 /min ZEESHAN GOLDBERG MD [facility] 07-08-2024 17:48-0400 Systolic Blood Pressure Non-Invasive 119 mm[Hg] ZEESHAN GOLDBERG MD [facility] Encounters Encounter Date Encounter Type Care Provider Facility Start: 07-20-2025 End: 07-20-2025 ambulatory HANS LA MD Facility:[facility] Start: 07-20-2025 Encounter for genera l adult medical examination without abnormal findings JEREMY CM APRN-ORTHOTIC [facility] Start: 07-20-2025 End: 07-20-2025 Patient encounter procedure JEREMYKENY [facility]IM[facility] Start: 07-08-2024 End: 07-08-2024 Emergency department patient visit ZEESHAN GOLDBERG MD [facility] Start: 10-08-2023 End: 10-12-2023 ambulatory JOSE F GLORIA MD Facility: Start: 10-08-2023 End: 10-12-2023 Outreach Lab JOSE F GLORIA MD [facility] Start: 10-04-2022 End: 10-04-2022 Patient encounter procedure JOSE F GLORIA MD [facility] Start: 06-29-2018 Emergency department patient visit UNKNOWN PROVIDER [facility] Start: 06-08-2018 End: 06-08-2018 Emergency department patient visit Levi Zacarias Facility:[facility] Procedures Date Procedure Procedure Detail Performing [...] Immunization Date Immunization Notes Care Provider Fa [facility] 03-07-2015 tetanus toxoid, redu tiffany diphtheria toxoid, and acellular pertussis vaccine, adsorbed JOSE F GLORIA MD [facility] Payers Date Payer Category Payer Medicaid 2023 Medicaid [id number] 2023 Unknown [id number] 2021 Private Health Insurance [id number] 2018 Self-pay 1975 Unknown [id number] 1975 Unknown [id number] [id number] 1975 Unknown [id number] [id number] 1975 Unknown [id number] Social History Date Type Detail Facility Start: 07-31-2019 Tobacco smoking status Ex-smoker (fi nding) [facility] Comment on above: no tobacco smoke exp osure Sex Assigned At Female [facility] Start: 05-13-2019 Sex Female (finding) [facility] Functional Status Date Assessment Result Facility 07-08-2024 Functional Status Independent [facility] 07-08-2024 Functional Status Standard Safet y ID band on, Call device within reach, Bed in low position, Wheels locked [facility] Mental Status Date Assessment Result Facility 07-08-2024 Mental Status Orientation Oriented x 4 [facility] 07-08-2024 Mental Status [facility] Discharge instructions 07-08-2024 Note Date [...] injured area. Frequent bruising for unknown reasons [phone] [employer]. [address] [place] [address]. All rights reserved. This information is not intended as a substitute for professional medical care. Always follow your healthcare professional's instructions. Follow Up Care 07/08/2024 17:49:25 With:HANS LA MD Address: [address] [place] [address]- When:2-4 days [facility] Clinical Note 07-08-2024 Note Date & Type Note Facility 07-08-2024 Note Discharge Instructions Thank you for allowing [facility] to assist you with your healthcare needs. [...] with HANS LA MD When:Within 2-4 days Where:[address] [place] [address]- Allergies NKA Medications Please ask your primary [...] injured area. Frequent bruising for unknown reasons [phone] [employer]. [address] [place] [address]99. All rights reserved. This information is not intended as a substitute for professional medical care. Always follow your healthcare professional's instructions. Additional Information VACCINATE! IT SAVES LIVES! Members of the community who have not yet received the COVID-19 vaccine and would like to receive it can visit one of [facility] vaccine clinics. There are many vaccine clinic locations within the [facility]. For locations and available times, please visit www.gettheshot.coronavirus.[place].gov/. It is important to note that some COVID mobile vaccine clinics are held outdoors and may be canceled in rainy or stormy conditions. To learn more about pediatric vaccinations (ages 5-11), we invite you to visit the [facility] webpage. https://www.[facility].org/pages/2 310-Nlzxb-Oglgctuftvs-Frequently-Asked -Questions.html To learn more about the COVID-19 vaccine, we invite you to visit the CDC website for a list of frequently asked questions. https://www.cdc.gov/coronavirus/2019-n cov/vaccines/faq.html [facility] Patient [facility] Access Instructions: Stay connected with your healthcare team and access your personal medical information anytime with the [facility] Patient Portal. If you would like a full copy of your medical records please contact the [facility] Medical Records Department Saturday through Saturday between 8a.m. and 4:30p.m. Please follow the directions below to access the portal: 1.Access the email account you provided upon registration to the [facility].2.Look for an invitation email from [facility].3.Open the email and access the invitation link: Accept Invitation to [employer]4.Fill in the required hall to create your account. Sign into [email or web address] with your username and password that you [...] you will allow to register on the [employer] Patient Portal for access to your information. You can also access the [employer] Patient Portal on the [employer]. Simply click on Health Records under Health Data and then click on the [employer] logo. HOW TO SAFELY DISPOSE OF PRESCRIPTION [...] Call your local pharmacy or go to http://[email or web address].[email or web address].Ynsect/[email or web address] to find one close to you.3.Make use of household items: Use cat litter or old coffee grounds to dispose medications if other options are not available. Mix your drugs with these household products, seal them in an airtight container and throw it into the garbage. Call [facility]: [phone] to be sure your drugs can be [...] aware that I should contact my doctor. Patient/Accountant Budget Signature: _ Date/Time: Relationship to Patient: Witness Name/Signature: Date/Time: [facility] Clinical Note 07-08-2024 Note Date & Type [...] 07/08/2024 8:49:00 PM Ordering Provider: TOMI RIZZO [facility] Evaluation + Plan note 10-08-2023 Radiology Note Date & Type Note Facility 10-08-2023 Evaluation + Plan note Future Scheduled TestsMA Mammo Screening Bilateral w/ Jake 10/08/23 [facility] Evaluation + Plan note 01-22-2022 Laboratory Note Date & Type Note Facility 01-22-2022 Evaluation + Plan note Future Scheduled TestsThyroid Stimulating Hormone 01/22/22Complete Blood Count 01/22/22Lipid Profile 01/22/22Complete Metabolic Panel 01/22/22 [facility] Evaluation + Plan note Radiology Note Date & Type Note Facility Evaluation + Plan note Future Appointments Appointment Date:09/29/2025 02:30:00 PM Scheduled Provider:JEREMY CM Location:[facility] Appointment Type:PC OV Controlled Medication Future Scheduled TestsMA Mammo Screening Bilateral w/ Jake 12/28/24 [facility] Hospital course Narrative Note Date & Type Note Facility Hospital course Narrative No data available for this section [facility] Hospital Discharge instructions Note Date & Type Note Facility Hospital Discharge instructions No data available for this section [facility] Progress note Note Date & Type Note Facility Progress note No data available for this section [facility] Summary Purpose Family History No Family History [...] section and content) DATE CREATED AUTHOR 06/09/2018 [facility] DATE CREATED AUTHOR AUTHOR'S ORGANIZ ATION 12/12/2018 [facility] DATE CREATED AUTHOR AUTHOR'S ORGANIZ ATION 07/13/2024 [facility] ([place]) DATE CREATED AUTHOR AUTHOR'S ORGANIZ ATION 07/28/2025 [facility] Care Team (unrecognized sect ion and content) Care Team Personnel Name: HANS LA MD Position: P4 Physician - Primary Care Member Role: Primary Care Physician Address: Address: [address] [place] [address] Care Team Related Persons Name: MANAV URBINA Name: NONE, Patient Care team informatio n (unrecognized section and content) Care Team Personnel Name: HANS LA MD Position: P4 Physician - Primary Care Member Role: Primary Care Physician Address: Address: [address] [place] [address] Care Team Related Persons Name: MANAV URBINA Name: NONE, Care Team Personnel Name: HANS LA MD Position: P4 Physician - Primary Care Member Role: Primary Care Physician Address: Address: [address] [place] [address] Care Team Related Persons Name: MANAV URBINA Name: NONE, Care Team Personnel Name: HANS LA MD Position: P4 Physician - Primary Care Member Role: Primary Care Physician Address: [address] [place] [address] Telecom: Care Team Related Persons Name: MANAV [...] BE BASED ON THE PRIMARY CLINICAL RECORDS. [facility]. provides no warranty or guarantee of the accuracy or completeness of information in this document.
--- NOTE | 2025-11-12 16:00 | MRI_ITS ---
PROCEDURE: UPPER EXT JOINT ONLY(ROUTINE) 11/12/2025 REASON FOR EXAM: LT TRICEP TENDON RUPTURE TECHNIQUE: Procedure Code: MRIUEJ Modality: MR Procedure: UPPER EXT JOINT ONLY(ROUTINE) Multiplanar and multisequence images were obtained without IV contrast administration. COMPARISON: 31-Oct-2025 CR FINDINGS: Diffuse subcutaneous soft tissue edema of the elbow with extensive edema of its posterior aspect extending into the arm. Intact triceps muscle and tendon with no obvious muscles interruption. Faint insertional high signal of its tendon noted. Ill defined patchy areas of marrow edema signal seen involving the ulnar coronoid process and anterolateral aspect of the radial head with related low signal lines. The common extensor tendon insertion shows high signal. No evidence of complete fibers interruption. Increased signal of the radial collateral ligament with partial ill definition of its humeral insertion. The flexor extensor tendon insertion shows high signal with edema signal of its myotendinous junction. No evidence of complete fibers interruption. Increased signal of the ulnar collateral ligament bundles with partial ill definition of its humeral insertion. Intramuscular edema of the brachialis and to less extent extensor carpi radialis muscles. The rest of the visualized tendons and muscles appear unremarkable. Moderate radiocapitellar and humeroulnar joint effusion showing synovial edema. No olecranon bursitis seen. Normal osseous alignment is seen. No marrow infiltrative lesions. Intact neurovascular bundle with effacement of the related fat and edema changes. MRI/Upper Ext Joint Only(Routine) IMPRESSION: Diffuse subcutaneous soft tissue edema of the elbow with extensive edema of its posterior aspect extending into the arm. Mild triceps insertional tendonitis. No evidence of obvious muscle strain. Trabecular injuries of the ulnar coronoid process and anterolateral aspect of t he radial head with related low signal lines worrisome of fractures. Advise better assessment of the osseous integrity by MS CT. Common extensor tendonitis. Grade II-III sprain of the radial collateral ligament. Common flexor extensor tendonitis with grade I strain of its myotendinous junct ion. Grade II-III sprain of the radial collateral ligament. Moderate radiocapitellar and humeroulnar joint effusion showing synovial edema. Reading Location[facility] [place] [address]
== END | disposition home or self-care (01) ==
PROVIDERS: PCP Nurse Practitioner Family; Referring Provider Physician Assistant Surgical; Visit Provider Physician Assistant Surgical
DX: S46.312A Strain of muscle, fascia and tendon of triceps, left arm, initial encounter (principal); S50.02XA Contusion of left elbow, initial encounter; S53.402A Unspecified sprain of left elbow, initial encounter
CPT/HCPCS: 73221